=== PATIENT | male | born 1940 | race Caucasian/White ===

== ENCOUNTER 2016-12-07 09:17 | Inpatient (IN) | payer MEDICARE ==
[~2016-12-07] VITALS: Ht 182.9 cm; Wt 121.3 kg
[2016-12-07] MEDS ORDERED: AMLODIPINE BESYLATE 5 MG TABLET PO ONE (10:15)
[2016-12-07] MEDS ORDERED: ONDANSETRON PF 4 MG/2 ML VIAL. IV ONE (10:15)
--- NOTE | 2016-12-07 10:20 | EKG ---
[facility] [address] [place] [address] Test Date: 2016-12-07 Test Time: 09:38:16 Pat Name: EVELYN KONG Department: Room: Gender: M [employer]: : 1940 Requested By: ELIZABETH BOLTON Order Number: [id number] Reading MD: Measurements Intervals [place] Rate: 83 P: 24 MT: 136 QRS: -3 QRSD: 112 T: 51 QT: 366 QTc: 431 Interpretive Statements SINUS RHYTHM ATRIAL PREMATURE COMPLEX(ES) LEFTWARD AXIS QRS(T) CONTOUR ABNORMALITY CONSIDER ANTEROSEPTAL MYOCARDIAL DAMAGE CONSISTENT WITH INFERIOR INFARCT PROBABLY OLD RI6.01 Unconfirmed report No previous ECG available for comparison
[2016-12-07 10:27] LABS: BILIRUBIN,URINE NEGATIVE (NEG); GLUCOSE,URINE NEGATIVE (NEG); NITRITE,URINE NEGATIVE (NEG); PROTEIN,URINE NEGATIVE (NEG-TRACE)
--- NOTE | 2016-12-07 10:32 | RAD ---
Indication dizziness. Nausea. Hypertension. A single view of the chest was obtained and is compared to an examination 07/23/2012. There is mild diffuse interstitial prominence in both lungs relative to the previous exam. Findings are suggestive either of mild congestive heart failure or interstitial pneumonitis. A consolidated pneumonia is not seen. Somewhat tortuous thoracic aorta is noted similar to the previous exam. There is no pleural fluid or pneumothorax. IMPRESSION: Interstitial prominence suggesting an inflammatory process or mild congestive heart failure. No focal consolidative process is seen in either lung
[2016-12-07 10:44] LABS: BACTERIA,URINE FEW /HPF (0-FEW); WBC,URINE RARE /HPF (0-4)
[2016-12-07 10:57] LABS: BASO # 0.1 x10^3/uL (0.0-0.2); BASO % 1 % (0-3); EOS % 1 % (0-3); HEMATOCRIT 43.5 % (39.0-53.0); HEMOGLOBIN 14.5 g/dL (13.0-17.5); LYMPH # 0.7 x10^3/uL (1.0-4.8); LYMPH % 5 % (24-48); MEAN CORPUSCULAR HEMOGLOBIN 29 pg (25-35); MEAN CORPUSCULAR HGB CONC 33 g/dL (31-37); MEAN CORPUSCULAR VOLUME 87 fL (79-100); MONO % 6 % (0-9); NEUT % 88 % (31-73); PLATELET COUNT 253 x10^3/uL (140-400); RED BLOOD COUNT 5.02 x10^6/uL (4.30-5.70); RED CELL DISTRIBUTION WIDTH 16.2 % (11.5-14.5); WHITE BLOOD COUNT 12.1 x10^3/uL (4.0-11.0)
[2016-12-07 11:13] LABS: CREATININE 0.9 mg/dL (0.7-1.3); GFR 82.3; POTASSIUM 4.4 mmol/L (3.5-5.1)
[2016-12-07 11:17] LABS: ALBUMIN 3.8 g/dL (3.4-5.0); MAGNESIUM 2.1 mg/dL (1.8-2.4); TOTAL BILIRUBIN 0.5 mg/dL (0.2-1.0); TOTAL PROTEIN 7.5 g/dL (6.4-8.2)
--- NOTE | 2016-12-07 11:29 | RAD ---
CT of the head without contrast, 12/07/2016: History: Dizziness and nausea There is asymmetric effacement of the sylvian fissure on the right as well as overlying temporal lobe sulci. There is a suggestion of an underlying focus of increased density in the temporal lobe surrounded by lower density, possibly edema. This region is suboptimally delineated due to beam hardening artifacts from the skull base. There is slight associated effacement of the right lateral ventricle with a slight right to left shift of the midline structures. Patchy lucencies in the deep white matter bilaterally are compatible with chronic ischemic change. IMPRESSION: 1. Ill-defined density in the right temporal lobe suggesting a mass or subacute hemorrhage. MR scanning is suggested for further evaluation. 2. Bilateral deep white matter lucencies compatible with chronic ischemic change. PQRS Compliance Statement: One or more of the following individualized dose reduction techniques were utilized for this examination: 1. Automated exposure control 2. Adjustment of the mA and/or kV according to patient size 3. Use of iterative reconstruction technique
[2016-12-07] MEDS ORDERED: hydrALAZINE 20 MG/ML VIAL. IVP ONE (11:30)
--- NOTE | 2016-12-07 12:15 | PHYS DOC ---
Past Medical History Past Medical History: Asthma, GERD Additional Past Medical Histor: COLON CA Past Surgical History: Colectomy Additional Past Surgical Histo: VASECTOMY Alcohol Use: None Drug Use: None Adult General Chief Complaint Chief Complaint: DIZZY/LIGHT HEADED HPI HPI Patient is a 76 year old male who presents with dizziness. Patient reports since awaking this morning he has been feeling dizzy; when asked to described this morning he says not really vertigo, it is kind of like lightheadedness but he does not feel like he is going to pass out. He also reports feeling "out of it". He also reports chills, nausea, general weakness. He denies any pain anywhere. He also denies shortness of breath. No prior similar episodes. He has not taken anything for symptoms. Review of Systems Review of Systems Constitutional: Chills, general weakness Eyes: Denies change in visual acuity or eye pain HENT: Denies nasal congestion or sore throat Respiratory: Denies cough or shortness of breath Cardiovascular: Denies chest pain GI: Nausea. Denies abdominal pain, vomiting, bloody stools or diarrhea : Denies dysuria or hematuria Musculoskeletal: Denies back pain or joint pain Integument: Denies rash or skin lesions Neurologic: Dizzy, "out of it". Denies headache, focal weakness or sensory changes Current Medications Current Medications Current Medications Medications (Trade) Dose Ordered Sig/Pankaj Start Time Stop Time Status Last Admin Dose Admin Amlodipine Besylate (Norvasc) 5 mg 1X ONCE 12/07/16 10:15 12/07/16 10:16 DC 12/07/16 10:45 5 MG Hydralazine HCl (Apresoline) 10 mg 1X ONCE 12/07/16 11:30 12/07/16 11:31 DC 12/07/16 11:45 10 MG Ondansetron HCl (Zofran) 4 mg 1X ONCE 12/07/16 10:15 12/07/16 10:16 DC 12/07/16 10:15 4 MG Allergies Allergies Allergies Coded Allergies Type Severity Reaction Last Updated Verified No Known Drug Allergies 12/07/16 No Physical Exam Physical Exam Constitutional: Well developed, well nourished, no acute distress, non-toxic appearance HENT: Normocephalic, atraumatic, bilateral external ears normal Eyes: PERRL, EOMI, conjunctiva normal, no discharge Neck: Normal range of motion, no stridor Cardiovascular: Heart rate normal, regular rhythm, no murmur Lungs & Thorax: Bilateral breath sounds clear to auscultation Abdomen: Bowel sounds normal, soft, non-distended, no TTP Skin: Warm, dry, no erythema, no rash Extremities: No obvious deformity, no edema Neurologic: Alert and oriented X 3, GCS 15, CN II-XII grossly intact except for nystagmus, strength intact and symmetrical throughout, sensation to light touch intact throughout, no dystaxia noted Psychologic: Anxious Current Patient Data Vital Signs Vital Signs Date Time Temp Pulse Resp B/P Pulse Ox O2 Delivery O2 Flow Rate FiO2 12/07/16 12:00 88 20 208/104 96 Room Air 12/07/16 09:35 98.3 98.3 Lab Values Laboratory Tests Test 12/07/16 10:13 12/07/16 10:40 Urine Collection Type Void Urine Color Yellow Urine Clarity Clear Urine pH 7.0 Urine Specific [place] 1.015 Urine Protein Negativemg/dL (NEG-TRACE) Urine Glucose (UA) Negativemg/dL (NEG) Urine Ketones (Stick) Negativemg/dL (NEG) Urine Blood Negative (NEG) Urine Nitrite Negative (NEG) Urine Bilirubin Negative (NEG) Urine Urobilinogen Dipstick 1.0mg/dL (0.2 mg/dL) Urine Leukocyte Esterase Negative (NEG) Urine RBC 1-2/HPF (0-2) Urine WBC Rare/HPF (0-4) Urine Amorphous Sediment Present/HPF Urine Bacteria Few/HPF (0-FEW) Urine Mucus Mod/LPF White Blood Count 12.1x10^3/uL (4.0-11.0) H Red Blood Count 5.02x10^6/uL (4.30-5.70) Hemoglobin 14.5g/dL (13.0-17.5) Hematocrit 43.5% (39.0-53.0) Mean Corpuscular Volume 87fL (79-100) Mean Corpuscular Hemoglobin 29pg (25-35) Mean Corpuscular Hemoglobin Concent 33g/dL (31-37) Red Cell Distribution Width 16.2% (11.5-14.5) H Platelet Count 253x10^3/uL (140-400) Neutrophils (%) (Auto) 88% (31-73) H Lymphocytes (%) (Auto) 5% (24-48) L Monocytes (%) (Auto) 6% (0-9) Eosinophils (%) (Auto) 1% (0-3) Basophils (%) (Auto) 1% (0-3) Neutrophils # (Auto) 10.6x10^3uL (1.8-7.7) H Lymphocytes # (Auto) 0.7x10^3/uL (1.0-4.8) L Monocytes # (Auto) 0.7x10^3/uL (0.0-1.1) Eosinophils # (Auto) 0.1x10^3/uL (0.0-0.7) Basophils # (Auto) 0.1x10^3/uL (0.0-0.2) Segmented Neutrophils % 85% (35-66) H Band Neutrophils % 6% (0-9) Lymphocytes % 4% (24-48) L Monocytes % 3% (0-10) Basophils % 2% (0-3) Platelet Estimate Adequate (ADEQUATE) Anisocytosis Slight Ovalocytes Few Prothrombin Time 14.2SEC (11.7-14.0) H Prothrombin Time INR 1.2 (0.8-1.1) H PTT 34SEC (24-38) Sodium Level 140mmol/L (136-145) Potassium Level 4.4mmol/L (3.5-5.1) Chloride Level 102mmol/L (98-107) Carbon Dioxide Level 25mmol/L (21-32) Anion Gap 13 (6-14) Blood Urea Nitrogen 16mg/dL (8-26) Creatinine 0.9mg/dL (0.7-1.3) Estimated GFR (Cockcroft-Gault) 82.3 BUN/Creatinine Ratio 18 (6-20) Glucose Level 148mg/dL (70-99) H Calcium Level 9.0mg/dL (8.5-10.1) Magnesium Level 2.1mg/dL (1.8-2.4) Total Bilirubin 0.5mg/dL (0.2-1.0) Aspartate Amino Transferase (AST) 19U/L (15-37) Alanine Aminotransferase (ALT) 24U/L (16-63) Alkaline Phosphatase 107U/L (46-116) Troponin I Quantitative < 0.017ng/mL (0.000-0.055) Total Protein 7.5g/dL (6.4-8.2) Albumin 3.8g/dL (3.4-5.0) Albumin/Globulin Ratio 1.0 (1.0-1.7) Laboratory Tests 12/07/16 10:40 Laboratory Tests 12/07/16 10:40 EKG EKG EKG (my read): sinus rhythm, rate 83, single PAC noted, borderline LAD, nonspecific ST changes Radiology/Procedures Radiology/Procedures CXR: IMPRESSION: Interstitial prominence suggesting an inflammatory process or mild congestive heart failure. No focal consolidative process is seen in either lung CT head: IMPRESSION: 1. Ill-defined density in the right temporal lobe suggesting a mass or subacute hemorrhage. MR scanning is suggested for further evaluation. 2. Bilateral deep white matter lucencies compatible with chronic ischemic change. Course & Med Decision Making Course & Med Decision Making Pertinent Labs and Imaging studies reviewed. (See chart for details) Patient is 76-year-old male who presents with vague dizziness, nausea, weakness. Will obtain CT head, EKG, chest x-ray, labs to evaluate. Patient noted to be hypertensive, blood pressure meds ordered. Given nausea medication for relief of nausea. Labs notable for mild leukocytosis. Imaging results as above. CT head in particular is concerning. Discussed results with patient. Discussed Dr. Miles, will admit under his care for further evaluation and treatment. MRI brain and neurology consult entered. Dragon Disclaimer Dragon Disclaimer This electronic medical record was generated, in whole or in part, using a voice recognition dictation system. Departure Departure Impression: Primary Impression: Dizziness Additional Impression: Abnormal brain CT Disposition: ADMITTED INPATIENT Admitting Physician: Zay Miles Condition: STABLE Referrals: ZAY MILES MD (PCP) Problem Qualifiers ELIZABETH BOLTON MD Dec 07, 2016 12:15
[2016-12-07 12:26] LABS: INR 1.2 (0.8-1.1); PROTHROMBIN TIME PATIENT 14.2 SEC (11.7-14.0)
[2016-12-07] MEDS ORDERED: ACETAMINOPHEN 325 MG TABLET. PO PRN (12:45)
[2016-12-07] MEDS ORDERED: MORPHINE SULFATE 2 MG/ML DISP.SYRIN. IV PRN (12:45)
--- NOTE | 2016-12-07 12:59 | ACF ---
Admission Forms Criteria DIZZINESS Clinical Indications for Admission to Inpatient Care (Place 'X' for any and all applicable criteria): Admission is indicated for ANY ONE of the following(1)(2)(3)(4): [X]I. Inpatient admission required rather than observation care (Also use Dizziness: Observation Care as appropriate) because of ANY ONE of the following: [ ]a) Hemodynamic instability that is severe or persistent [ ]b) Signs or symptoms that are severe or persistent (eg, vomit, orthostasis, inability to ambulate) [ ]c) Cardiac arrhythmias of immediate concern [X]d) Severe (new) neurologic findings requiring inpatient care as indicated by ANY ONE of the following(6)(7): [ ]1) Cerebral bleeding, ischemia, or vasospasm(8)(9) [ ]2) Increased intracranial pressure or hydrocephalus(10)(11)(12) [ ]3) Papilledema [ ]4) Cerebral edema [X]5) Mass effect on CT scan [ ]e) Continuous IV infusion of anticoagulation, platelet inhibitor, vasoactive, or antiarrhythmic medication [ ]f) Cerebral bleeding, hydrocephalus, or vasospasm monitoring(14) [ ]g) Increased intracranial pressure or cerebral edema monitoring [ ]h) Vomiting that is severe or persistent [ ]i) Other condition, treatment or monitoring requiring inpatient admission [ ]II. A suspected etiology that requires admission for treatment [ ]III. Acute bacterial labyrinthitis [ ]IV. Cerebellar, brainstem, or cerebral ischemia or hemorrhage (5) Extended stay beyond goal length of stay may be needed for evaluating and treating a specific cause of dizziness, including(32) [ ]a) Head injury (Also use Traumatic Brain Injury, Nonsurgical Treatment guideline) [ ]b) New-onset vertebrobasilar vascular insufficiency [ ]c) Acute Meniere disease with intractable symptoms [ ]d) Cardiac arrhythmias or conduction defects [ ]e) Acute neurologic event causing dizziness [ ]f) Myocardial ischemia [ ]g) Acute bacterial labyrinthitis. [ ]h) Severe acute vestibular neuronitis The original [facility] [employer] content created by [employer] has been revised. The portions of the content which have been revised are identified through the use of italic text or in bold, and [facility] [employer] has neither reviewed nor approved the modified material. All other unmodified content is copyright [facility]. Please see references footnoted in the original [facility] edition 2016 Admission Criteria Met?: Yes ANGELES FULTON Dec 07, 2016 12:59
[2016-12-07] MEDS: ONDANSETRON PF 4 MG/2 ML VIAL. IV PRN ×2 (13:16→21:34)
[2016-12-07] MEDS: hydrALAZINE 20 MG/ML VIAL. IVP PRN ×2 (13:17→17:42)
[2016-12-07 13:22] LABS: % BASOS 2 % (0-3); PLT ESTIMATE ADEQUATE (ADEQUATE)
[2016-12-07 13:23] LABS: ANISOCYTOSIS SLIGHT; OVALOCYTES FEW
[2016-12-07] MEDS ORDERED: GADOBUTROL 7.5 MMOL/7.5 ML VIAL IV ONE (14:00)
[2016-12-07] MEDS ORDERED: GADOBUTROL 10 MMOL/10 ML VIAL IV ONE (14:00)
--- NOTE | 2016-12-07 16:41 | PDOC2 ---
NEUROLOGY CONSULT Date of Admission Date of Admission DATE: 12/07/16 TIME: 16:31 Reason for Consult Reason for Consult: Abnormal head CT Referring Physician Referring Physician: Dr. An Source Source: Chart review, Patient History of Present Illness History of Present Illness The patient is a 76-year-old right-handed male who felt dizzy this morning came to the emergency department. He feels "out of it," rather than a true type of vertigo. He has no history of stroke, seizure, or head injury. Past Medical History GI: GERD (progress) Heme/Onc: Cancer (colon 1994) Past Surgical History Past Surgical History: Colectomy, Other (vascectomy) Family History Family History: Cancer Social History Social History , lives alone, has 9 cats, chews tobacco, does not smoke it, does not use alcohol. Current Medications Current Medications Current Medications Amlodipine Besylate (Norvasc) 5 mg 1X ONCE PO Last administered on 12/07/16 10:45; Start 12/07/16 at 10:15; Stop 12/07/16 at 10:16; Status DC Ondansetron HCl (Zofran) 4 mg 1X ONCE IV Last administered on 12/07/16 10:15 ; Start 12/07/16 at 10:15; Stop 12/07/16 at 10:16; Status DC Hydralazine HCl (Apresoline) 10 mg 1X ONCE IVP Last administered on 12/07/16 11:45; Start 12/07/16 at 11:30; Stop 12/07/16 at 11:31; Status DC Ondansetron HCl (Zofran) 4 mg PRN Q8HRS PRN IV NAUSEA/VOMITING Last administered on 12/07/16 13:16; Start 12/07/16 at 12:45; Stop 12/08/16 at 12:44 Morphine Sulfate 2 mg PRN Q2HR PRN IV PAIN; Start 12/07/16 at 12:45; Stop 12/08 at 12:44 Acetaminophen (Tylenol) 650 mg PRN Q4HRS PRN PO FEVER Last administered on 12/07 13:16; Start 12/07/16 at 12:45; Stop 12/08/16 at 12:44 Hydralazine HCl (Apresoline) 10 mg PRN Q1HR PRN IVP SBP >160 Last administered on 12/07/16 13:17; Start 12/07/16 at 12:45 Gadobutrol (Gadavist) 10 mmol 1X ONCE IV Last administered on 12/07/16 14:08 ; Start 12/07/16 at 14:00; Stop 12/07/16 at 14:01; Status DC Gadobutrol (Gadavist) 4 mmol 1X ONCE IV Last administered on 12/07/16 14:08; Start 12/07/16 at 14:00; Stop 12/07/16 at 14:01; Status DC Allergies Allergies: Coded Allergies: No Known Drug Allergies (Unverified , 12/07/16) ROS Review of System Patient denies fevers, chills, weight loss, dyspnea, angina, abdominal pain, change in bowels, or dysuria. 14 point review of systems is negative. Physical Exam Physical Examination PHYSICAL EXAMINATION: Vital signs: see above. General appearance is normal and in no acute distress. HEENT: Normocephalic and nontraumatic. Eyes, nose, ears, and throat are unremarkable. Neck is supple. No lymphadenopathy. No bruits are heard over the carotid artery. No crepitus. NEUROLOGICAL EXAMINATION: Mental Status Examination: Alert. Oriented to time, place, and person. Answers questions and follows commends. Pupils are equal round and reactive to light and accommodation. Funduscopic exam: No papilledema. Extraocular movements are intact. Visual field exam shows no defect on the direct confrontation. No motor or sensory deficits on the facial exam. Uvula in the midline and the soft palate elevated symmetrically. No deviation of the tongue to any direction. Gross hearing is normal. Shoulder shrug normal. Muscle tone is normal. Muscle strength is 5. Deep tendon reflexes are 2+ all around. Plantar reflex is with flexion response bilaterally. [id number]-[id number]-[id number] test performance is accurate. Tandem walk test is accurate. Alternative movements are accurate. Romberg test is negative. Gait is normal. Sensory exam shows no deficits. No cerebellar signs are elicited. Vitals VITALS Vital Signs Date Time Temp Pulse Resp B/P Pulse Ox O2 Delivery O2 Flow Rate FiO2 12/07/16 15:00 99 20 168/82 97 Room Air 12/07/16 09:35 98.3 98.3 Labs Labs Laboratory Tests Test 12/07/16 10:13 12/07/16 10:40 Urine Collection Type Void Urine Color Yellow Urine Clarity Clear Urine pH 7.0 Urine Specific [place] 1.015 Urine Protein Negativemg/dL (NEG-TRACE) Urine Glucose (UA) Negativemg/dL (NEG) Urine Ketones (Stick) Negativemg/dL (NEG) Urine Blood Negative (NEG) Urine Nitrite Negative (NEG) Urine Bilirubin Negative (NEG) Urine Urobilinogen Dipstick 1.0mg/dL (0.2 mg/dL) Urine Leukocyte Esterase Negative (NEG) Urine RBC 1-2/HPF (0-2) Urine WBC Rare/HPF (0-4) Urine Amorphous Sediment Present/HPF Urine Bacteria Few/HPF (0-FEW) Urine Mucus Mod/LPF White Blood Count 12.1x10^3/uL (4.0-11.0) Red Blood Count 5.02x10^6/uL (4.30-5.70) Hemoglobin 14.5g/dL (13.0-17.5) Hematocrit 43.5% (39.0-53.0) Mean Corpuscular Volume 87fL (79-100) Mean Corpuscular Hemoglobin 29pg (25-35) Mean Corpuscular Hemoglobin Concent 33g/dL (31-37) Red Cell Distribution Width 16.2% (11.5-14.5) Platelet Count 253x10^3/uL (140-400) Neutrophils (%) (Auto) 88% (31-73) Lymphocytes (%) (Auto) 5% (24-48) Monocytes (%) (Auto) 6% (0-9) Eosinophils (%) (Auto) 1% (0-3) Basophils (%) (Auto) 1% (0-3) Neutrophils # (Auto) 10.6x10^3uL (1.8-7.7) Lymphocytes # (Auto) 0.7x10^3/uL (1.0-4.8) Monocytes # (Auto) 0.7x10^3/uL (0.0-1.1) Eosinophils # (Auto) 0.1x10^3/uL (0.0-0.7) Basophils # (Auto) 0.1x10^3/uL (0.0-0.2) Segmented Neutrophils % 85% (35-66) Band Neutrophils % 6% (0-9) Lymphocytes % 4% (24-48) Monocytes % 3% (0-10) Basophils % 2% (0-3) Platelet Estimate Adequate (ADEQUATE) Anisocytosis Slight Ovalocytes Few Prothrombin Time 14.2SEC (11.7-14.0) Prothromb Time International Ratio 1.2 (0.8-1.1) Activated Partial Thromboplast Time 34SEC (24-38) Sodium Level 140mmol/L (136-145) Potassium Level 4.4mmol/L (3.5-5.1) Chloride Level 102mmol/L (98-107) Carbon Dioxide Level 25mmol/L (21-32) Anion Gap 13 (6-14) Blood Urea Nitrogen 16mg/dL (8-26) Creatinine 0.9mg/dL (0.7-1.3) Estimated GFR (Cockcroft-Gault) 82.3 BUN/Creatinine Ratio 18 (6-20) Glucose Level 148mg/dL (70-99) Calcium Level 9.0mg/dL (8.5-10.1) Magnesium Level 2.1mg/dL (1.8-2.4) Total Bilirubin 0.5mg/dL (0.2-1.0) Aspartate Amino Transf (AST/SGOT) 19U/L (15-37) Alanine Aminotransferase (ALT/SGPT) 24U/L (16-63) Alkaline Phosphatase 107U/L (46-116) Troponin I Quantitative < 0.017ng/mL (0.000-0.055) Total Protein 7.5g/dL (6.4-8.2) Albumin 3.8g/dL (3.4-5.0) Albumin/Globulin Ratio 1.0 (1.0-1.7) Laboratory Tests Test 12/07/16 10:13 12/07/16 10:40 Urine Collection Type Void Urine Color Yellow Urine Clarity Clear Urine pH 7.0 Urine Specific [place] 1.015 Urine Protein Negativemg/dL (NEG-TRACE) Urine Glucose (UA) Negativemg/dL (NEG) Urine Ketones (Stick) Negativemg/dL (NEG) Urine Blood Negative (NEG) Urine Nitrite Negative (NEG) Urine Bilirubin Negative (NEG) Urine Urobilinogen Dipstick 1.0mg/dL (0.2 mg/dL) Urine Leukocyte Esterase Negative (NEG) Urine RBC 1-2/HPF (0-2) Urine WBC Rare/HPF (0-4) Urine Amorphous Sediment Present/HPF Urine Bacteria Few/HPF (0-FEW) Urine Mucus Mod/LPF White Blood Count 12.1x10^3/uL (4.0-11.0) Red Blood Count 5.02x10^6/uL (4.30-5.70) Hemoglobin 14.5g/dL (13.0-17.5) Hematocrit 43.5% (39.0-53.0) Mean Corpuscular Volume 87fL (79-100) Mean Corpuscular Hemoglobin 29pg (25-35) Mean Corpuscular Hemoglobin Concent 33g/dL (31-37) Red Cell Distribution Width 16.2% (11.5-14.5) Platelet Count 253x10^3/uL (140-400) Neutrophils (%) (Auto) 88% (31-73) Lymphocytes (%) (Auto) 5% (24-48) Monocytes (%) (Auto) 6% (0-9) Eosinophils (%) (Auto) 1% (0-3) Basophils (%) (Auto) 1% (0-3) Neutrophils # (Auto) 10.6x10^3uL (1.8-7.7) Lymphocytes # (Auto) 0.7x10^3/uL (1.0-4.8) Monocytes # (Auto) 0.7x10^3/uL (0.0-1.1) Eosinophils # (Auto) 0.1x10^3/uL (0.0-0.7) Basophils # (Auto) 0.1x10^3/uL (0.0-0.2) Segmented Neutrophils % 85% (35-66) Band Neutrophils % 6% (0-9) Lymphocytes % 4% (24-48) Monocytes % 3% (0-10) Basophils % 2% (0-3) Platelet Estimate Adequate (ADEQUATE) Anisocytosis Slight Ovalocytes Few Prothrombin Time 14.2SEC (11.7-14.0) Prothromb Time International Ratio 1.2 (0.8-1.1) Activated Partial Thromboplast Time 34SEC (24-38) Sodium Level 140mmol/L (136-145) Potassium Level 4.4mmol/L (3.5-5.1) Chloride Level 102mmol/L (98-107) Carbon Dioxide Level 25mmol/L (21-32) Anion Gap 13 (6-14) Blood Urea Nitrogen 16mg/dL (8-26) Creatinine 0.9mg/dL (0.7-1.3) Estimated GFR (Cockcroft-Gault) 82.3 BUN/Creatinine Ratio 18 (6-20) Glucose Level 148mg/dL (70-99) Calcium Level 9.0mg/dL (8.5-10.1) Magnesium Level 2.1mg/dL (1.8-2.4) Total Bilirubin 0.5mg/dL (0.2-1.0) Aspartate Amino Transf (AST/SGOT) 19U/L (15-37) Alanine Aminotransferase (ALT/SGPT) 24U/L (16-63) Alkaline Phosphatase 107U/L (46-116) Troponin I Quantitative < 0.017ng/mL (0.000-0.055) Total Protein 7.5g/dL (6.4-8.2) Albumin 3.8g/dL (3.4-5.0) Albumin/Globulin Ratio 1.0 (1.0-1.7) Images Images I reviewed the CT of the head in the MRI of the brain Assessment/Plan Assessment/Plan Impression: Right temporal mass, does not appear to be a stroke, 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 Recommendations: IV Decadron Prophylactic anticonvulsants are not indicated per medical literature Neurosurgical consult CT [id number] I discussed findings with the patient in detail. Thank you for letting me help with the patient's care. GLADYS ROWELL MD Dec 07, 2016 16:41
--- NOTE | 2016-12-07 17:03 | RAD ---
PROCEDURE MRI of the brain without and with contrast 12/07/2016 HISTORY Severe dizziness with unsteady gait for 1 day. Hypertension. TECHNIQUE Unenhanced T1 weighted sagittal and axial and gradient echo, FLAIR, and diffusion weighted axial images of the brain were obtained. After the intravenous administration of 12 cc of Gadavist, enhanced T1 weighted sagittal axial and coronal images of the brain were obtained. FINDINGS Comparison is made to a CT scan of the head performed earlier today. There is generalized parenchymal atrophy. Patchy, confluent and multiple focal areas of abnormally increased signal intensity are seen within the periventricular and subcortical white matter of both cerebral hemispheres along with the jered on the FLAIR and T2 weighted images consistent with areas of small vessel ischemic disease. No extra-axial fluid collection is seen. Increased signal intensity is seen on the FLAIR and T2 weighted images involving the anterior right temporal lobe. There is associated mass effect. This corresponds to the abnormality seen on the patient's CT scan of the head. No definite underlying restricted diffusion is seen in this area. Faint patchy enhancement is seen centrally. These MRI findings are nonspecific and could be seen in the setting of a subacute infarct, infectious process (encephalitis) or due to a neoplasm. Clinical correlation and follow-up MRI imaging is recommended. Mild mucosal thickening is seen scattered throughout the paranasal sinuses. Normal flow voids are seen within the major vascular structures surrounding the brain parenchyma. IMPRESSION Area of abnormal signal intensity with associated mass effect is seen involving the anterior right temporal lobe which corresponds to the abnormality seen on the patient's CT scan. Its MRI appearance is nonspecific. It could represent an area of subacute infarction, an infectious process (encephalitis) or neoplasm. Clinical correlation is recommended. Follow-up MRI imaging is recommended. Electronically signed by: Cosme Du MD (Dec 07, 2016 17:01:57)
[2016-12-07] MEDS ORDERED: BREO ELLIPTA 21 EACH IH (17:08)
[2016-12-07] MEDS ORDERED: CITA10TA4 PO (17:10)
[2016-12-07 17:38] VITALS: BP 181/98
[2016-12-07 17:39] VITALS: BP 181/98
[2016-12-07] MEDS: DEXAMETHASONE SOD PHOS 4 MG/ML VIAL IV SCH ×2 (17:41→23:40)
[2016-12-07 19:25] VITALS: BP 134/72
[2016-12-07 23:35] VITALS: BP 130/70
[2016-12-08 03:25] VITALS: BP 139/67
[2016-12-08 04:42] LABS: BASO % 0 % (0-3); EOS % 0 % (0-3); HEMATOCRIT 41.4 % (39.0-53.0); HEMOGLOBIN 13.3 g/dL (13.0-17.5); LYMPH # 0.4 x10^3/uL (1.0-4.8); LYMPH % 4 % (24-48); MEAN CORPUSCULAR HEMOGLOBIN 29 pg (25-35); MEAN CORPUSCULAR HGB CONC 32 g/dL (31-37); MEAN CORPUSCULAR VOLUME 88 fL (79-100); MONO % 2 % (0-9); NEUT % 94 % (31-73); PLATELET COUNT 233 x10^3/uL (140-400); RED BLOOD COUNT 4.68 x10^6/uL (4.30-5.70)
[2016-12-08 04:52] LABS: CALCIUM 9.1 mg/dL (8.5-10.1); CREATININE 0.9 mg/dL (0.7-1.3); GFR 82.3; POTASSIUM 4.1 mmol/L (3.5-5.1)
[2016-12-08] MEDS: DEXAMETHASONE SOD PHOS 4 MG/ML VIAL IV SCH ×3 (06:33→17:20)
[2016-12-08 07:00] VITALS: BP 127/71
--- NOTE | 2016-12-08 08:14 | PDOC ---
GENERAL General: vss and afebrile. seen and examined. son in room. history per patient of sudden onset nonspecific dizziness and weakness yesterday am with no symptoms preceding same. son feels dad was not quite right last Wednesday with just disinterest in things when he saw him. [facility] underway for left temporal lobe process. neurology help appreciated. See dictated H&P. Problems: VITAL SIGNS Vital Signs: Vital Signs Date Time Temp Pulse Resp B/P Pulse Ox O2 Delivery O2 Flow Rate FiO2 12/08/16 07:36 Room Air 12/08/16 07:00 98.0 93 18 127/71 94 98.0 I & O I & O Intake and Output 12/08/16 07:00 Intake Total 600 ml Balance 600 ml Intake Oral 600 ml # Voids 3 ALLERGIES Allergies: Allergies Coded Allergies Type Severity Reaction Last Updated Verified No Known Drug Allergies 12/07/16 No MEDS Medications: Current Medications Medications (Trade) Dose Ordered Sig/Pankaj Start Time Stop Time Status Last Admin Dose Admin Acetaminophen (Tylenol) 650 mg PRN Q4HRS PRN 12/07/16 12:45 12/08/16 12:44 12/07/16 13:16 650 MG Amlodipine Besylate (Norvasc) 5 mg 1X ONCE 12/07/16 10:15 12/07/16 10:16 DC 12/07/16 10:45 5 MG Dexamethasone Sodium Phosphate (Decadron) 4 mg Q6HRS 12/07/16 17:00 12/08/16 06:33 4 MG Gadobutrol (Gadavist) 4 mmol 1X ONCE 12/07/16 14:00 12/07/16 14:01 DC 12/07/16 14:08 4 MMOL Hydralazine HCl (Apresoline) 10 mg PRN Q1HR PRN 12/07/16 12:45 12/07/16 17:42 10 MG Morphine Sulfate 2 mg PRN Q2HR PRN 12/07/16 12:45 12/08/16 12:44 12/07/16 23:40 2 MG Ondansetron HCl (Zofran) 4 mg PRN Q8HRS PRN 12/07/16 12:45 12/08/16 12:44 12/07/16 21:34 4 MG LAB Lab: Laboratory Tests Test 12/07/16 10:13 12/07/16 10:40 12/08/16 04:15 Urine Collection Type Void Urine Color Yellow Urine Clarity Clear Urine pH 7.0 Urine Specific [place] 1.015 Urine Protein Negativemg/dL (NEG-TRACE) Urine Glucose (UA) Negativemg/dL (NEG) Urine Ketones (Stick) Negativemg/dL (NEG) Urine Blood Negative (NEG) Urine Nitrite Negative (NEG) Urine Bilirubin Negative (NEG) Urine Urobilinogen Dipstick 1.0mg/dL (0.2 mg/dL) Urine Leukocyte Esterase Negative (NEG) Urine RBC 1-2/HPF (0-2) Urine WBC Rare/HPF (0-4) Urine Amorphous Sediment Present/HPF Urine Bacteria Few/HPF (0-FEW) Urine Mucus Mod/LPF White Blood Count 12.1x10^3/uL (4.0-11.0) 12.0x10^3/uL (4.0-11.0) Red Blood Count 5.02x10^6/uL (4.30-5.70) 4.68x10^6/uL (4.30-5.70) Hemoglobin 14.5g/dL (13.0-17.5) 13.3g/dL (13.0-17.5) Hematocrit 43.5% (39.0-53.0) 41.4% (39.0-53.0) Mean Corpuscular Volume 87fL (79-100) 88fL (79-100) Mean Corpuscular Hemoglobin 29pg (25-35) 29pg (25-35) Mean Corpuscular Hemoglobin Concent 33g/dL (31-37) 32g/dL (31-37) Red Cell Distribution Width 16.2% (11.5-14.5) 16.0% (11.5-14.5) Platelet Count 253x10^3/uL (140-400) 233x10^3/uL (140-400) Neutrophils (%) (Auto) 88% (31-73) 94% (31-73) Lymphocytes (%) (Auto) 5% (24-48) 4% (24-48) Monocytes (%) (Auto) 6% (0-9) 2% (0-9) Eosinophils (%) (Auto) 1% (0-3) 0% (0-3) Basophils (%) (Auto) 1% (0-3) 0% (0-3) Neutrophils # (Auto) 10.6x10^3uL (1.8-7.7) 11.3x10^3uL (1.8-7.7) Lymphocytes # (Auto) 0.7x10^3/uL (1.0-4.8) 0.4x10^3/uL (1.0-4.8) Monocytes # (Auto) 0.7x10^3/uL (0.0-1.1) 0.2x10^3/uL (0.0-1.1) Eosinophils # (Auto) 0.1x10^3/uL (0.0-0.7) 0.0x10^3/uL (0.0-0.7) Basophils # (Auto) 0.1x10^3/uL (0.0-0.2) 0.0x10^3/uL (0.0-0.2) Segmented Neutrophils % 85% (35-66) Band Neutrophils % 6% (0-9) Lymphocytes % 4% (24-48) Monocytes % 3% (0-10) Basophils % 2% (0-3) Platelet Estimate Adequate (ADEQUATE) Anisocytosis Slight Ovalocytes Few Prothrombin Time 14.2SEC (11.7-14.0) Prothromb Time International Ratio 1.2 (0.8-1.1) Activated Partial Thromboplast Time 34SEC (24-38) Sodium Level 140mmol/L (136-145) 131mmol/L (136-145) Potassium Level 4.4mmol/L (3.5-5.1) 4.1mmol/L (3.5-5.1) Chloride Level 102mmol/L (98-107) 97mmol/L (98-107) Carbon Dioxide Level 25mmol/L (21-32) 24mmol/L (21-32) Anion Gap 13 (6-14) 10 (6-14) Blood Urea Nitrogen 16mg/dL (8-26) 15mg/dL (8-26) Creatinine 0.9mg/dL (0.7-1.3) 0.9mg/dL (0.7-1.3) Estimated GFR (Cockcroft-Gault) 82.3 82.3 BUN/Creatinine Ratio 18 (6-20) Glucose Level 148mg/dL (70-99) 126mg/dL (70-99) Calcium Level 9.0mg/dL (8.5-10.1) 9.1mg/dL (8.5-10.1) Magnesium Level 2.1mg/dL (1.8-2.4) Total Bilirubin 0.5mg/dL (0.2-1.0) Aspartate Amino Transf (AST/SGOT) 19U/L (15-37) Alanine Aminotransferase (ALT/SGPT) 24U/L (16-63) Alkaline Phosphatase 107U/L (46-116) Troponin I Quantitative < 0.017ng/mL (0.000-0.055) Total Protein 7.5g/dL (6.4-8.2) Albumin 3.8g/dL (3.4-5.0) Albumin/Globulin Ratio 1.0 (1.0-1.7) ZAY MILES MD Dec 08, 2016 08:14
[2016-12-08] MEDS: CITALOPRAM 10 MG TABLET. PO SCH (08:36)
[2016-12-08] MEDS ORDERED: NON FORMULARY ITEM (Fluticasone/Vilanterol (Breo Ellipta 200-25 Mcg INH) 1 PUFF) IH SCH (09:00)
--- NOTE | 2016-12-08 09:45 | PDOC ---
SUBJECTIVE Subjective Pt seen and examined. 76M with distant history of colonCA woke up yesterday with dizziness/ lightheadedness but without vertigo. Denies headache or pain. Denies focal weakness, paresthesias, visual disturbance, or other changes. Was excessively hypertensive on admit. Now normotensive. Reports symptoms improved to near resolved. Imaging revealed nonspecific T2 hyperintensity right temporal pole. On exam, he is neurologically intact. Concern for possible neoplastic process but could represent subacute stroke or potential inflammatory process. Pt bright and alert and does not appear toxic. CT chest/abd/pelvis neg. No seizure- like activity. Had long discussion with patient and family regarding potential etiologies of lesion with discussion of potential treatments and diagnostic modalities with explanation of potential risks, benefits, and expectations. As he remains neurologically intact and without symptoms that would be directly attributable to this lesion, a short term follow-up with repeat MR imaging in a few weeks is recommended at this time. If he otherwise continues to be stable, recommend repeat MRI brain with and without contrast in a few weeks with outpatient follow -up [phone]. Discussed with patient and family in detail. All questions answered. All in agreement. OBJECTIVE Vital Signs Vital Signs Date Time Temp Pulse Resp B/P Pulse Ox O2 Delivery O2 Flow Rate FiO2 12/08/16 07:36 Room Air 12/08/16 07:00 98.0 93 18 127/71 94 Room Air 98.0 12/08/16 03:25 99.1 97 20 139/67 92 Room Air 99.1 12/08/16 00:10 18 96 Room Air 12/07/16 23:40 20 96 Room Air 12/07/16 23:35 98.6 103 20 130/70 92 Room Air 98.6 12/07/16 20:00 Room Air 12/07/16 19:25 97.7 108 20 134/72 93 Room Air 97.7 12/07/16 17:47 Room Air 12/07/16 17:42 114 181/98 12/07/16 17:39 97.7 114 22 181/98 95 Room Air 97.7 12/07/16 17:38 97.7 114 22 181/98 Room Air 97.7 12/07/16 16:30 106 20 170/80 96 Room Air 12/07/16 16:00 106 20 173/88 97 Room Air 12/07/16 15:30 104 20 184/91 97 Room Air 12/07/16 15:00 99 20 168/82 97 Room Air 12/07/16 14:30 100 20 167/87 96 Room Air 12/07/16 14:00 98 20 162/74 97 Room Air 12/07/16 13:27 94 20 192/93 95 Room Air 12/07/16 13:17 98 192/93 12/07/16 13:00 102 20 182/88 97 Room Air 12/07/16 12:30 98 20 219/98 96 Room Air 12/07/16 12:00 88 20 208/104 96 Room Air 12/07/16 11:45 79 223/102 12/07/16 11:34 82 20 212/93 99 Room Air 12/07/16 11:05 80 20 205/87 99 Room Air 12/07/16 10:45 90 205/87 12/07/16 10:35 94 20 215/123 98 Room Air 12/07/16 10:05 94 18 206/104 98 Room Air I & O Intake and Output 12/08/16 07:00 Intake Total 600 ml Balance 600 ml Intake Oral 600 ml # Voids 3 COMMENT Lab Laboratory Tests Test 12/07/16 10:13 12/07/16 10:40 12/08/16 04:15 Urine Collection Type Void Urine Color Yellow Urine Clarity Clear Urine pH 7.0 Urine Specific [place] 1.015 Urine Protein Negativemg/dL (NEG-TRACE) Urine Glucose (UA) Negativemg/dL (NEG) Urine Ketones (Stick) Negativemg/dL (NEG) Urine Blood Negative (NEG) Urine Nitrite Negative (NEG) Urine Bilirubin Negative (NEG) Urine Urobilinogen Dipstick 1.0mg/dL (0.2 mg/dL) Urine Leukocyte Esterase Negative (NEG) Urine RBC 1-2/HPF (0-2) Urine WBC Rare/HPF (0-4) Urine Amorphous Sediment Present/HPF Urine Bacteria Few/HPF (0-FEW) Urine Mucus Mod/LPF White Blood Count 12.1x10^3/uL (4.0-11.0) 12.0x10^3/uL (4.0-11.0) Red Blood Count 5.02x10^6/uL (4.30-5.70) 4.68x10^6/uL (4.30-5.70) Hemoglobin 14.5g/dL (13.0-17.5) 13.3g/dL (13.0-17.5) Hematocrit 43.5% (39.0-53.0) 41.4% (39.0-53.0) Mean Corpuscular Volume 87fL (79-100) 88fL (79-100) Mean Corpuscular Hemoglobin 29pg (25-35) 29pg (25-35) Mean Corpuscular Hemoglobin Concent 33g/dL (31-37) 32g/dL (31-37) Red Cell Distribution Width 16.2% (11.5-14.5) 16.0% (11.5-14.5) Platelet Count 253x10^3/uL (140-400) 233x10^3/uL (140-400) Neutrophils (%) (Auto) 88% (31-73) 94% (31-73) Lymphocytes (%) (Auto) 5% (24-48) 4% (24-48) Monocytes (%) (Auto) 6% (0-9) 2% (0-9) Eosinophils (%) (Auto) 1% (0-3) 0% (0-3) Basophils (%) (Auto) 1% (0-3) 0% (0-3) Neutrophils # (Auto) 10.6x10^3uL (1.8-7.7) 11.3x10^3uL (1.8-7.7) Lymphocytes # (Auto) 0.7x10^3/uL (1.0-4.8) 0.4x10^3/uL (1.0-4.8) Monocytes # (Auto) 0.7x10^3/uL (0.0-1.1) 0.2x10^3/uL (0.0-1.1) Eosinophils # (Auto) 0.1x10^3/uL (0.0-0.7) 0.0x10^3/uL (0.0-0.7) Basophils # (Auto) 0.1x10^3/uL (0.0-0.2) 0.0x10^3/uL (0.0-0.2) Segmented Neutrophils % 85% (35-66) Band Neutrophils % 6% (0-9) Lymphocytes % 4% (24-48) Monocytes % 3% (0-10) Basophils % 2% (0-3) Platelet Estimate Adequate (ADEQUATE) Anisocytosis Slight Ovalocytes Few Prothrombin Time 14.2SEC (11.7-14.0) Prothromb Time International Ratio 1.2 (0.8-1.1) Activated Partial Thromboplast Time 34SEC (24-38) Sodium Level 140mmol/L (136-145) 131mmol/L (136-145) Potassium Level 4.4mmol/L (3.5-5.1) 4.1mmol/L (3.5-5.1) Chloride Level 102mmol/L (98-107) 97mmol/L (98-107) Carbon Dioxide Level 25mmol/L (21-32) 24mmol/L (21-32) Anion Gap 13 (6-14) 10 (6-14) Blood Urea Nitrogen 16mg/dL (8-26) 15mg/dL (8-26) Creatinine 0.9mg/dL (0.7-1.3) 0.9mg/dL (0.7-1.3) Estimated GFR (Cockcroft-Gault) 82.3 82.3 BUN/Creatinine Ratio 18 (6-20) Glucose Level 148mg/dL (70-99) 126mg/dL (70-99) Calcium Level 9.0mg/dL (8.5-10.1) 9.1mg/dL (8.5-10.1) Magnesium Level 2.1mg/dL (1.8-2.4) Total Bilirubin 0.5mg/dL (0.2-1.0) Aspartate Amino Transf (AST/SGOT) 19U/L (15-37) Alanine Aminotransferase (ALT/SGPT) 24U/L (16-63) Alkaline Phosphatase 107U/L (46-116) Troponin I Quantitative < 0.017ng/mL (0.000-0.055) Total Protein 7.5g/dL (6.4-8.2) Albumin 3.8g/dL (3.4-5.0) Albumin/Globulin Ratio 1.0 (1.0-1.7) IRENE GONCALVES MD Dec 08, 2016 09:45
[2016-12-08] MEDS ORDERED: IOHEXOL 300 MG/ML 75 ML VIAL IV ONE (10:15)
[2016-12-08] MEDS ORDERED: IOHEXOL 240 MG/ML 50ML VIAL. PO ONE (10:15)
[2016-12-08 11:00] VITALS: BP 136/71
--- NOTE | 2016-12-08 11:27 | PDOC ---
PROGRESS NOTES Assessment Problems Medical Problems: (1) Abnormal brain CT Status: Acute (2) Dizziness Status: Acute Right temporal lobe lesion. Son thinks he has not been acting right for the past week Plan Await workup Continue Decadron Neurosurgery has seen Discussed with patient son. Subjective No complaints Objective Vital Signs Date Time Temp Pulse Resp B/P Pulse Ox O2 Delivery O2 Flow Rate FiO2 12/08/16 07:36 Room Air 12/08/16 07:00 98.0 93 18 127/71 94 98.0 Intake and Output 12/08/16 07:00 Intake Total 600 ml Balance 600 ml Intake Oral 600 ml # Voids 3 PHYSICAL EXAM Alert. Oriented to time, place and person. PERRL. EOMI. CN: no focal findings. Muscle tone: normal. Muscle strength: 5/5 DTR: 2+ Plantar reflex: flexor Gait: not examined in bed. Sensory exam: no abnormal findings. No cerebellar signs elicited. Review of Relevant I have reviewed the following items abran (where applicable) has been applied. Labs Laboratory Tests Test 12/07/16 10:13 12/07/16 10:40 12/08/16 04:15 Urine Collection Type Void Urine Color Yellow Urine Clarity Clear Urine pH 7.0 Urine Specific [place] 1.015 Urine Protein Negativemg/dL (NEG-TRACE) Urine Glucose (UA) Negativemg/dL (NEG) Urine Ketones (Stick) Negativemg/dL (NEG) Urine Blood Negative (NEG) Urine Nitrite Negative (NEG) Urine Bilirubin Negative (NEG) Urine Urobilinogen Dipstick 1.0mg/dL (0.2 mg/dL) Urine Leukocyte Esterase Negative (NEG) Urine RBC 1-2/HPF (0-2) Urine WBC Rare/HPF (0-4) Urine Amorphous Sediment Present/HPF Urine Bacteria Few/HPF (0-FEW) Urine Mucus Mod/LPF White Blood Count 12.1x10^3/uL (4.0-11.0) 12.0x10^3/uL (4.0-11.0) Red Blood Count 5.02x10^6/uL (4.30-5.70) 4.68x10^6/uL (4.30-5.70) Hemoglobin 14.5g/dL (13.0-17.5) 13.3g/dL (13.0-17.5) Hematocrit 43.5% (39.0-53.0) 41.4% (39.0-53.0) Mean Corpuscular Volume 87fL (79-100) 88fL (79-100) Mean Corpuscular Hemoglobin 29pg (25-35) 29pg (25-35) Mean Corpuscular Hemoglobin Concent 33g/dL (31-37) 32g/dL (31-37) Red Cell Distribution Width 16.2% (11.5-14.5) 16.0% (11.5-14.5) Platelet Count 253x10^3/uL (140-400) 233x10^3/uL (140-400) Neutrophils (%) (Auto) 88% (31-73) 94% (31-73) Lymphocytes (%) (Auto) 5% (24-48) 4% (24-48) Monocytes (%) (Auto) 6% (0-9) 2% (0-9) Eosinophils (%) (Auto) 1% (0-3) 0% (0-3) Basophils (%) (Auto) 1% (0-3) 0% (0-3) Neutrophils # (Auto) 10.6x10^3uL (1.8-7.7) 11.3x10^3uL (1.8-7.7) Lymphocytes # (Auto) 0.7x10^3/uL (1.0-4.8) 0.4x10^3/uL (1.0-4.8) Monocytes # (Auto) 0.7x10^3/uL (0.0-1.1) 0.2x10^3/uL (0.0-1.1) Eosinophils # (Auto) 0.1x10^3/uL (0.0-0.7) 0.0x10^3/uL (0.0-0.7) Basophils # (Auto) 0.1x10^3/uL (0.0-0.2) 0.0x10^3/uL (0.0-0.2) Segmented Neutrophils % 85% (35-66) Band Neutrophils % 6% (0-9) Lymphocytes % 4% (24-48) Monocytes % 3% (0-10) Basophils % 2% (0-3) Platelet Estimate Adequate (ADEQUATE) Anisocytosis Slight Ovalocytes Few Prothrombin Time 14.2SEC (11.7-14.0) Prothromb Time International Ratio 1.2 (0.8-1.1) Activated Partial Thromboplast Time 34SEC (24-38) Sodium Level 140mmol/L (136-145) 131mmol/L (136-145) Potassium Level 4.4mmol/L (3.5-5.1) 4.1mmol/L (3.5-5.1) Chloride Level 102mmol/L (98-107) 97mmol/L (98-107) Carbon Dioxide Level 25mmol/L (21-32) 24mmol/L (21-32) Anion Gap 13 (6-14) 10 (6-14) Blood Urea Nitrogen 16mg/dL (8-26) 15mg/dL (8-26) Creatinine 0.9mg/dL (0.7-1.3) 0.9mg/dL (0.7-1.3) Estimated GFR (Cockcroft-Gault) 82.3 82.3 BUN/Creatinine Ratio 18 (6-20) Glucose Level 148mg/dL (70-99) 126mg/dL (70-99) Calcium Level 9.0mg/dL (8.5-10.1) 9.1mg/dL (8.5-10.1) Magnesium Level 2.1mg/dL (1.8-2.4) Total Bilirubin 0.5mg/dL (0.2-1.0) Aspartate Amino Transf (AST/SGOT) 19U/L (15-37) Alanine Aminotransferase (ALT/SGPT) 24U/L (16-63) Alkaline Phosphatase 107U/L (46-116) Troponin I Quantitative < 0.017ng/mL (0.000-0.055) Total Protein 7.5g/dL (6.4-8.2) Albumin 3.8g/dL (3.4-5.0) Albumin/Globulin Ratio 1.0 (1.0-1.7) Laboratory Tests Test 12/08/16 04:15 White Blood Count 12.0x10^3/uL (4.0-11.0) Red Blood Count 4.68x10^6/uL (4.30-5.70) Hemoglobin 13.3g/dL (13.0-17.5) Hematocrit 41.4% (39.0-53.0) Mean Corpuscular Volume 88fL (79-100) Mean Corpuscular Hemoglobin 29pg (25-35) Mean Corpuscular Hemoglobin Concent 32g/dL (31-37) Red Cell Distribution Width 16.0% (11.5-14.5) Platelet Count 233x10^3/uL (140-400) Neutrophils (%) (Auto) 94% (31-73) Lymphocytes (%) (Auto) 4% (24-48) Monocytes (%) (Auto) 2% (0-9) Eosinophils (%) (Auto) 0% (0-3) Basophils (%) (Auto) 0% (0-3) Neutrophils # (Auto) 11.3x10^3uL (1.8-7.7) Lymphocytes # (Auto) 0.4x10^3/uL (1.0-4.8) Monocytes # (Auto) 0.2x10^3/uL (0.0-1.1) Eosinophils # (Auto) 0.0x10^3/uL (0.0-0.7) Basophils # (Auto) 0.0x10^3/uL (0.0-0.2) Sodium Level 131mmol/L (136-145) Potassium Level 4.1mmol/L (3.5-5.1) Chloride Level 97mmol/L (98-107) Carbon Dioxide Level 24mmol/L (21-32) Anion Gap 10 (6-14) Blood Urea Nitrogen 15mg/dL (8-26) Creatinine 0.9mg/dL (0.7-1.3) Estimated GFR (Cockcroft-Gault) 82.3 Glucose Level 126mg/dL (70-99) Calcium Level 9.1mg/dL (8.5-10.1) Medications Current Medications Amlodipine Besylate (Norvasc) 5 mg 1X ONCE PO Last administered on 12/07/16 10:45; Start 12/07/16 at 10:15; Stop 12/07/16 at 10:16; Status DC Ondansetron HCl (Zofran) 4 mg 1X ONCE IV Last administered on 12/07/16 10:15 ; Start 12/07/16 at 10:15; Stop 12/07/16 at 10:16; Status DC Hydralazine HCl (Apresoline) 10 mg 1X ONCE IVP Last administered on 12/07/16 11:45; Start 12/07/16 at 11:30; Stop 12/07/16 at 11:31; Status DC Ondansetron HCl (Zofran) 4 mg PRN Q8HRS PRN IV NAUSEA/VOMITING Last administered on 12/07/16 21:34; Start 12/07/16 at 12:45; Stop 12/08/16 at 12:44 Morphine Sulfate 2 mg PRN Q2HR PRN IV PAIN Last administered on 12/07/16 23:40 ; Start 12/07/16 at 12:45; Stop 12/08/16 at 12:44 Acetaminophen (Tylenol) 650 mg PRN Q4HRS PRN PO FEVER Last administered on 12/07 13:16; Start 12/07/16 at 12:45; Stop 12/08/16 at 12:44 Hydralazine HCl (Apresoline) 10 mg PRN Q1HR PRN IVP SBP >160 Last administered on 12/07/16 17:42; Start 12/07/16 at 12:45 Gadobutrol (Gadavist) 10 mmol 1X ONCE IV Last administered on 12/07/16 14:08 ; Start 12/07/16 at 14:00; Stop 12/07/16 at 14:01; Status DC Gadobutrol (Gadavist) 4 mmol 1X ONCE IV Last administered on 12/07/16 14:08; Start 12/07/16 at 14:00; Stop 12/07/16 at 14:01; Status DC Dexamethasone Sodium Phosphate (Decadron) 4 mg Q6HRS IV Last administered on 06:33; Start 12/07/16 at 17:00 Citalopram Hydrobromide (Celexa) 10 mg DAILY PO ; Start 12/08/16 at 09:00 Non-Formulary Medication 1 puff DAILY IH ; Start 12/08/16 at 09:00; Status UNV Albuterol Sulfate (Ventolin Neb Soln) 2.5 mg RTQID NEB ; Start 12/08/16 at 09:00 Budesonide (Pulmicort) 0.5 mg RTBID NEB ; Start 12/08/16 at 09:00 Iohexol (Omnipaque 300 Mg/ml) 75 ml 1X ONCE IV Last administered on 12/08/16 10:31; Start 12/08/16 at 10:15; Stop 12/08/16 at 10:16; Status DC Iohexol (Omnipaque 240 Mg/ml) 50 ml 1X ONCE PO Last administered on 12/08/16 10:31; Start 12/08/16 at 10:15; Stop 12/08/16 at 10:16; Status DC Active Scripts Active Reported Citalopram Hbr (Citalopram Hydrobromide) 10 Mg Tablet 1 Tab PO DAILY Breo Ellipta 200-25 Mcg INH (Fluticasone/Vilanterol) 1 Each Blst.w.dev 1 Puff IH DAILY Vitals/I & O Vital Sign - Last 24 Hours 12/07/16 12/07/16 12/07/16 12/07/16 11:34 11:45 12:00 12:30 Pulse 82 79 88 98 Resp 20 B/P 212/93 223/102 208/104 219/98 Pulse Ox 99 96 96 O2 Delivery Room Air Room Air Room Air 12/07/16 12/07/16 12/07/16 12/07/16 13:00 13:17 13:27 14:00 Pulse 102 98 94 98 Resp 20 B/P 182/88 192/93 192/93 162/74 Pulse Ox 97 95 97 O2 Delivery Room Air Room Air Room Air 12/07/16 12/07/16 12/07/16 12/07/16 14:30 15:00 15:30 16:00 Pulse 100 99 104 106 Resp 20 B/P 167/87 168/82 184/91 173/88 Pulse Ox 96 97 97 97 O2 Delivery Room Air Room Air Room Air Room Air 12/07/16 12/07/16 12/07/16 12/07/16 16:30 17:38 17:39 17:42 Temp 97.7 97.7 97.7 97.7 Pulse 106 114 114 114 Resp B/P 170/80 181/98 181/98 181/98 Pulse Ox 96 95 O2 Delivery Room Air Room Air Room Air 12/07/16 12/07/16 12/07/16 12/07/16 17:47 19:25 20:00 23:35 Temp 97.7 98.6 97.7 98.6 Pulse 108 103 Resp 20 20 B/P 134/72 130/70 Pulse Ox 93 92 O2 Delivery Room Air Room Air Room Air Room Air 12/07/16 12/08/16 12/08/16 12/08/16 23:40 00:10 03:25 07:00 Temp 99.1 98.0 99.1 98.0 Pulse 97 93 Resp 20 18 18 B/P 139/67 127/71 Pulse Ox 96 96 92 94 O2 Delivery Room Air Room Air Room Air Room Air 12/08/16 07:36 O2 Delivery Room Air Intake and Output 12/07/16 12/07/16 12/08/16 15:00 23:00 07:00 Intake Total 600 ml Balance 600 ml GLADYS ROWELL MD Dec 08, 2016 11:27
--- NOTE | 2016-12-08 11:43 | RAD ---
Indication possible metastatic disease right temporal lobe. Abnormal MRI. Assess for potential primary. Imaging through the chest, abdomen and pelvis was performed. Both oral and IV contrast were administered. Approximately 75 cc of Omnipaque 300 was administered intravenously. Note is made of the CT and MRI examinations of the head one day earlier referencing pathology in the right temporal lobe. CT chest: Findings. The thoracic aorta is unremarkable. Extensive coronary artery calcification is noted. No significant hilar or mediastinal adenopathy is seen. Acute parenchymal infiltrate in either lung is not seen. A dominant soft tissue mass is not apparent. Evidence of primary or metastatic disease in the chest is not seen. A moderately large hiatus hernia is noted CT abdomen and pelvis: Findings. The liver and spleen appear unremarkable. The gallbladder appears grossly normal. No pancreatic pathology is seen. The adrenal glands appear normal. There is a large mass, most compatible with a cyst, measuring almost 10 cm in greatest dimension associated with the right kidney. There is no significant central or retroperitoneal adenopathy. An acute finding in the abdomen or pelvis is not seen. There is a left inguinal hernia. Evidence of primary or metastatic disease in the abdomen or pelvis is not seen. There is a small periumbilical hernia which appears uncomplicated. IMPRESSION: No acute finding seen in the chest, abdomen or pelvis. No evidence of primary or metastatic disease seen. Moderately large hiatus hernia. Large right renal cyst PQRS Compliance Statement: One or more of the following individualized dose reduction techniques were utilized for this examination: 1. Automated exposure control 2. Adjustment of the mA and/or kV according to patient size 3. Use of iterative reconstruction technique
[2016-12-08] MEDS: BUDESONIDE 0.5 MG/2 ML NEBU NEB SCH ×2 (11:49→19:54)
[2016-12-08] MEDS: ALBUTEROL SULFATE 2.5 MG/3 ML NEBU. NEB SCH ×4 (11:52→19:54)
[2016-12-08] MEDS ORDERED: OMEP20CA9 PO (12:03)
[2016-12-08] MEDS: PANTOPRAZOLE 40 MG TABLET. PO SCH (12:18)
[2016-12-08 15:00] VITALS: BP 145/77
[2016-12-08 19:54] VITALS: BP 132/72
--- NOTE | 2016-12-08 22:03 | HP ---
ADMIT DATE: 12/07/2016 CHIEF COMPLAINT AND HISTORY OF PRESENT ILLNESS: This is a 76-year-old white male, who is well known to me from followup in the office. The patient was admitted through the Emergency Room after working up for dizziness and feeling weak all over. He was found to have a left parietal process going on that was unable to be characterized, a left temporal lobe process going on suggesting mass, subacute hemorrhage, and possible infectious process, admitted for the same. PAST MEDICAL HISTORY: Remarkable for asthma, GERD, history of colon cancer, has a history of BPH, osteoarthritis of his right knee, and depression. PAST SURGICAL HISTORY: Remarkable for partial colectomy and vasectomy. MEDICATIONS: Brought with the patient, listed on the computer and have been addressed. ALLERGIES: No known drug allergies. SOCIAL HISTORY: He is , nonsmoker, nondrinker, does not use drugs. FAMILY HISTORY: Noncontributory. REVIEW OF SYSTEMS: As mentioned above. PHYSICAL EXAMINATION: GENERAL: He is a well-developed, well-nourished, pleasant white male, in no acute distress. Son is present during my examination. VITAL SIGNS: Stable. He is afebrile. Blood pressure was elevated on admission, but has come down nicely. HEAD, EYES, EARS, NOSE, AND THROAT: Remarkable for glasses. NECK: Supple without ____ thyromegaly. There are no carotid bruits. CHEST: Clear to auscultation and percussion. HEART: Regular rate and rhythm without S3, S4, murmur. ABDOMEN: Soft, nontender, without hepatosplenomegaly or masses. EXTREMITIES: Without cyanosis, clubbing, or edema. NEUROLOGIC: Intact. LABORATORY DATA: Initial lab work is essentially unremarkable. IMPRESSION: Weakness and dizziness secondary to left temporal process as noted above of uncertain etiology at this point in time with multiple other problems listed above. PLAN: The patient has been admitted. Neurology as well as Neurosurgery has been consulted. MRI has been done and the patient will be monitored, managed, and treated appropriately. ZAY MILES MD DR: ARTHUR/layla JOB#: [id number] / [id number]
[2016-12-08 23:48] VITALS: BP 135/66
[2016-12-09] MEDS: DEXAMETHASONE SOD PHOS 4 MG/ML VIAL IV SCH ×2 (00:05→06:00)
[2016-12-09 03:17] VITALS: BP 152/84
[2016-12-09 07:00] VITALS: BP 163/83
[2016-12-09] MEDS: CITALOPRAM 10 MG TABLET. PO SCH (07:19)
[2016-12-09] MEDS: PANTOPRAZOLE 40 MG TABLET. PO SCH (07:19)
[2016-12-09] MEDS: BUDESONIDE 0.5 MG/2 ML NEBU NEB SCH ×2 (07:27→20:40)
[2016-12-09] MEDS: ALBUTEROL SULFATE 2.5 MG/3 ML NEBU. NEB SCH ×4 (07:27→20:40)
--- NOTE | 2016-12-09 08:05 | PDOC ---
GENERAL General: vss and afebrile. awake and alert and family in attendance. some hallucinations( seeing cats and mice in room) likely related to decadron. slow and difficult getting out of chair so will ask for therapy eval. likely best option at [place] is snu if qualifies with mobility issues and mental status changes as he lives alone. Imaging for another lesion negative and neurosurgery plans noted. Problems: VITAL SIGNS Vital Signs: Vital Signs Date Time Temp Pulse Resp B/P Pulse Ox O2 Delivery O2 Flow Rate FiO2 12/09/16 07:27 98 Room Air 12/09/16 07:00 97.9 85 20 163/83 97.9 I & O I & O Intake and Output 12/09/16 07:00 Intake Total 1800 ml Output Total 450 ml Balance 1350 ml Intake Oral 1800 ml Output Urine Total 450 ml # Voids 9 ALLERGIES Allergies: Allergies Coded Allergies Type Severity Reaction Last Updated Verified No Known Drug Allergies 12/07/16 No MEDS Medications: Current Medications Medications (Trade) Dose Ordered Sig/Pankaj Start Time Stop Time Status Last Admin Dose Admin Acetaminophen (Tylenol) 650 mg PRN Q4HRS PRN 12/07/16 12:45 12/08/16 12:44 DC 12/07/16 13:16 650 MG Albuterol Sulfate (Ventolin Neb Soln) 2.5 mg RTQID 12/08/16 09:00 12/09/16 07:27 2.5 MG Amlodipine Besylate (Norvasc) 5 mg 1X ONCE 12/07/16 10:15 12/07/16 10:16 DC 12/07/16 10:45 5 MG Budesonide (Pulmicort) 0.5 mg RTBID 12/08/16 09:00 12/09/16 07:27 0.5 MG Citalopram Hydrobromide (Celexa) 10 mg DAILY 12/08/16 09:00 12/09/16 07:19 10 MG Dexamethasone Sodium Phosphate (Decadron) 4 mg Q6HRS 12/07/16 17:00 12/09/16 06:00 4 MG Gadobutrol (Gadavist) 4 mmol 1X ONCE 12/07/16 14:00 12/07/16 14:01 DC 12/07/16 14:08 4 MMOL Hydralazine HCl (Apresoline) 10 mg PRN Q1HR PRN 12/07/16 12:45 12/07/16 17:42 10 MG Iohexol (Omnipaque 240 Mg/ml) 50 ml 1X ONCE 12/08/16 10:15 12/08/16 10:16 DC 12/08/16 10:31 50 ML Iohexol (Omnipaque 300 Mg/ml) 75 ml 1X ONCE 12/08/16 10:15 12/08/16 10:16 DC 12/08/16 10:31 75 ML Morphine Sulfate 2 mg PRN Q2HR PRN 12/07/16 12:45 12/08/16 12:44 DC 12/07/16 23:40 2 MG Non-Formulary Medication 1 puff DAILY 12/08/16 09:00 UNV Ondansetron HCl (Zofran) 4 mg PRN Q8HRS PRN 12/07/16 12:45 12/08/16 12:44 DC 12/07/16 21:34 4 MG Pantoprazole Sodium (Protonix) 40 mg DAILYAC 12/08/16 12:00 12/09/16 07:19 40 MG ZAY MILES MD Dec 09, 2016 08:05
[2016-12-09 11:00] VITALS: BP 146/74
--- NOTE | 2016-12-09 12:28 | PDOC ---
PROGRESS NOTES Assessment Problems Medical Problems: (1) Abnormal brain CT Status: Acute (2) Dizziness Status: Acute Right temporal lobe lesion. Metastatic workup negative Some hallucinations, may be related to Decadron Plan Reduce decadron to 4 mg orally daily Note neurosurgery plans to delay any surgery and check a follow-up MRI Discussed with patient's daughter Transfer to custodial unit Subjective No complaints, but was having some hallucinations Objective Vital Signs Date Time Temp Pulse Resp B/P Pulse Ox O2 Delivery O2 Flow Rate FiO2 12/09/16 11:04 Room Air 12/09/16 11:00 97.9 83 20 146/74 97 97.9 Intake and Output 12/09/16 07:00 Intake Total 1800 ml Output Total 450 ml Balance 1350 ml Intake Oral 1800 ml Output Urine Total 450 ml # Voids 9 PHYSICAL EXAM Alert. Oriented to time, place and person. PERRL. EOMI. CN: no focal findings. Muscle tone: normal. Muscle strength: 5/5 DTR: 2+ Plantar reflex: flexor Gait: not examined in bed. Sensory exam: no abnormal findings. No cerebellar signs elicited. Review of Relevant I have reviewed the following items abran (where applicable) has been applied. Labs Laboratory Tests Test 12/08/16 04:15 White Blood Count 12.0x10^3/uL (4.0-11.0) Red Blood Count 4.68x10^6/uL (4.30-5.70) Hemoglobin 13.3g/dL (13.0-17.5) Hematocrit 41.4% (39.0-53.0) Mean Corpuscular Volume 88fL (79-100) Mean Corpuscular Hemoglobin 29pg (25-35) Mean Corpuscular Hemoglobin Concent 32g/dL (31-37) Red Cell Distribution Width 16.0% (11.5-14.5) Platelet Count 233x10^3/uL (140-400) Neutrophils (%) (Auto) 94% (31-73) Lymphocytes (%) (Auto) 4% (24-48) Monocytes (%) (Auto) 2% (0-9) Eosinophils (%) (Auto) 0% (0-3) Basophils (%) (Auto) 0% (0-3) Neutrophils # (Auto) 11.3x10^3uL (1.8-7.7) Lymphocytes # (Auto) 0.4x10^3/uL (1.0-4.8) Monocytes # (Auto) 0.2x10^3/uL (0.0-1.1) Eosinophils # (Auto) 0.0x10^3/uL (0.0-0.7) Basophils # (Auto) 0.0x10^3/uL (0.0-0.2) Sodium Level 131mmol/L (136-145) Potassium Level 4.1mmol/L (3.5-5.1) Chloride Level 97mmol/L (98-107) Carbon Dioxide Level 24mmol/L (21-32) Anion Gap 10 (6-14) Blood Urea Nitrogen 15mg/dL (8-26) Creatinine 0.9mg/dL (0.7-1.3) Estimated GFR (Cockcroft-Gault) 82.3 Glucose Level 126mg/dL (70-99) Calcium Level 9.1mg/dL (8.5-10.1) Medications Current Medications Amlodipine Besylate (Norvasc) 5 mg 1X ONCE PO Last administered on 12/07/16 10:45; Start 12/07/16 at 10:15; Stop 12/07/16 at 10:16; Status DC Ondansetron HCl (Zofran) 4 mg 1X ONCE IV Last administered on 12/07/16 10:15 ; Start 12/07/16 at 10:15; Stop 12/07/16 at 10:16; Status DC Hydralazine HCl (Apresoline) 10 mg 1X ONCE IVP Last administered on 12/07/16 11:45; Start 12/07/16 at 11:30; Stop 12/07/16 at 11:31; Status DC Ondansetron HCl (Zofran) 4 mg PRN Q8HRS PRN IV NAUSEA/VOMITING Last administered on 12/07/16 21:34; Start 12/07/16 at 12:45; Stop 12/08/16 at 12:44 ; Status DC Morphine Sulfate 2 mg PRN Q2HR PRN IV PAIN Last administered on 12/07/16 23:40 ; Start 12/07/16 at 12:45; Stop 12/08/16 at 12:44; Status DC Acetaminophen (Tylenol) 650 mg PRN Q4HRS PRN PO FEVER Last administered on 12/07 13:16; Start 12/07/16 at 12:45; Stop 12/08/16 at 12:44; Status DC Hydralazine HCl (Apresoline) 10 mg PRN Q1HR PRN IVP SBP >160 Last administered on 12/07/16 17:42; Start 12/07/16 at 12:45 Gadobutrol (Gadavist) 10 mmol 1X ONCE IV Last administered on 12/07/16 14:08 ; Start 12/07/16 at 14:00; Stop 12/07/16 at 14:01; Status DC Gadobutrol (Gadavist) 4 mmol 1X ONCE IV Last administered on 12/07/16 14:08; Start 12/07/16 at 14:00; Stop 12/07/16 at 14:01; Status DC Dexamethasone Sodium Phosphate (Decadron) 4 mg Q6HRS IV Last administered on 06:00; Start 12/07/16 at 17:00; Stop 12/09/16 at 09:29; Status DC Citalopram Hydrobromide (Celexa) 10 mg DAILY PO Last administered on 12/09/16 07:19; Start 12/08/16 at 09:00 Non-Formulary Medication 1 puff DAILY IH ; Start 12/08/16 at 09:00; Status UNV Albuterol Sulfate (Ventolin Neb Soln) 2.5 mg RTQID NEB Last administered on 11:03; Start 12/08/16 at 09:00 Budesonide (Pulmicort) 0.5 mg RTBID NEB Last administered on 12/09/16 07:27; Start 12/08/16 at 09:00 Iohexol (Omnipaque 300 Mg/ml) 75 ml 1X ONCE IV Last administered on 12/08/16 10:31; Start 12/08/16 at 10:15; Stop 12/08/16 at 10:16; Status DC Iohexol (Omnipaque 240 Mg/ml) 50 ml 1X ONCE PO Last administered on 12/08/16 10:31; Start 12/08/16 at 10:15; Stop 12/08/16 at 10:16; Status DC Pantoprazole Sodium (Protonix) 40 mg DAILYAC PO Last administered on 12/09/16t 07:19; Start 12/08/16 at 12:00 Dexamethasone (Decadron) 4 mg DAILYWBKFT PO ; Start 12/10/16 at 08:00 Active Scripts Active Reported Omeprazole 20 Mg Capsule.dr 1 Cap PO DAILY Citalopram Hbr (Citalopram Hydrobromide) 10 Mg Tablet 1 Tab PO DAILY Breo Ellipta 200-25 Mcg INH (Fluticasone/Vilanterol) 1 Each Blst.w.dev 1 Puff IH DAILY Vitals/I & O Vital Sign - Last 24 Hours 12/08/16 12/08/16 12/08/16 12/08/16 15:00 15:34 19:54 19:56 Temp 97.9 97.9 97.9 97.9 Pulse 78 69 Resp 18 20 B/P 145/77 132/72 Pulse Ox 96 96 96 96 O2 Delivery Room Air Room Air Room Air Room Air 12/08/16 12/08/16 12/09/16 12/09/16 20:00 23:48 03:17 07:00 Temp 97.7 98.4 97.9 97.7 98.4 97.9 Pulse 73 73 85 Resp 20 20 20 B/P 135/66 152/84 163/83 Pulse Ox 95 96 99 O2 Delivery Room Air Room Air Room Air Room Air 12/09/16 12/09/16 12/09/16 12/09/16 07:27 08:00 11:00 11:04 Temp 97.9 97.9 Pulse 83 Resp 20 B/P 146/74 Pulse Ox 98 97 O2 Delivery Room Air Room Air Room Air Room Air Intake and Output 12/08/16 12/08/16 12/09/16 15:00 23:00 07:00 Intake Total 230 ml 500 ml 1070 ml Output Total 450 ml Balance 230 ml 50 ml [address] chest, abdomen, pelvis, negative GLADYS ROWELL MD Dec 09, 2016 12:28
--- NOTE | 2016-12-09 13:22 | PDOC ---
SUBJECTIVE Subjective Denies acute complaints. Walking around room. Pleasant and talkative. Reported hallucinations overnight. Decrease in steroid noted. OBJECTIVE Vital Signs Vital Signs Date Time Temp Pulse Resp B/P Pulse Ox O2 Delivery O2 Flow Rate FiO2 12/09/16 11:04 Room Air 12/09/16 11:00 97.9 83 20 146/74 97 Room Air 97.9 12/09/16 08:00 Room Air 12/09/16 07:27 98 Room Air 12/09/16 07:00 97.9 85 20 163/83 99 Room Air 97.9 12/09/16 03:17 98.4 73 20 152/84 96 Room Air 98.4 12/08/16 23:48 97.7 73 20 135/66 95 Room Air 97.7 12/08/16 20:00 Room Air 12/08/16 19:56 96 Room Air 12/08/16 19:54 97.9 69 20 132/72 96 Room Air 97.9 12/08/16 15:34 96 Room Air 12/08/16 15:00 97.9 78 18 145/77 96 Room Air 97.9 I & O Intake and Output 12/09/16 07:00 Intake Total 1800 ml Output Total 450 ml Balance 1350 ml Intake Oral 1800 ml Output Urine Total 450 ml # Voids 9 PHYSICAL EXAM Physical Exam AA, NAD, speech fluent, smiling and pleasant, RESENDIZ 5/5, sensation intact LT ASSESSMENT/PLAN Assessment/Plan 76M with temporal lesion - neurologically stable and intact -SNF pending -follow-up few weeks with repeat MRI brain with/without contrast -monitor for changes otherwise -again discussed plan with patient and family at length, all questions answered , all in agreement Problems: IRENE GONCALVES MD Dec 09, 2016 13:22
[2016-12-09 15:00] VITALS: BP 149/84
[2016-12-09 19:29] VITALS: BP 154/82
[2016-12-09 23:00] VITALS: BP 160/99
[2016-12-10 07:00] VITALS: BP 173/94
[2016-12-10] MEDS: BUDESONIDE 0.5 MG/2 ML NEBU NEB SCH (07:58)
[2016-12-10] MEDS: ALBUTEROL SULFATE 2.5 MG/3 ML NEBU. NEB SCH ×2 (07:58→11:53)
[2016-12-10] MEDS ORDERED: DEXAMETHASONE 4 MG TABLET PO SCH (08:00)
--- NOTE | 2016-12-10 08:25 | PDOC ---
GENERAL General: see discharge summary. Problems: VITAL SIGNS Vital Signs: Vital Signs Date Time Temp Pulse Resp B/P Pulse Ox O2 Delivery O2 Flow Rate FiO2 12/10/16 07:58 96 Room Air 12/10/16 07:00 98.4 68 18 173/94 98.4 I & O I & O Intake and Output 12/10/16 07:00 Intake Total 1520 ml Balance 1520 ml Intake Oral 1520 ml # Voids 5 ALLERGIES Allergies: Allergies Coded Allergies Type Severity Reaction Last Updated Verified No Known Drug Allergies 12/07/16 No MEDS Medications: Current Medications Medications (Trade) Dose Ordered Sig/Pankaj Start Time Stop Time Status Last Admin Dose Admin Acetaminophen (Tylenol) 650 mg PRN Q4HRS PRN 12/07/16 12:45 12/08/16 12:44 DC 12/07/16 13:16 650 MG Albuterol Sulfate (Ventolin Neb Soln) 2.5 mg RTQID 12/08/16 09:00 12/10/16 07:58 2.5 MG Amlodipine Besylate (Norvasc) 5 mg 1X ONCE 12/07/16 10:15 12/07/16 10:16 DC 12/07/16 10:45 5 MG Budesonide (Pulmicort) 0.5 mg RTBID 12/08/16 09:00 12/10/16 07:58 0.5 MG Citalopram Hydrobromide (Celexa) 10 mg DAILY 12/08/16 09:00 12/09/16 07:19 10 MG Dexamethasone (Decadron) 4 mg DAILYWBKFT 12/10/16 08:00 Dexamethasone Sodium Phosphate (Decadron) 4 mg Q6HRS 12/07/16 17:00 12/09/16 09:29 DC 12/09/16 06:00 4 MG Gadobutrol (Gadavist) 4 mmol 1X ONCE 12/07/16 14:00 12/07/16 14:01 DC 12/07/16 14:08 4 MMOL Hydralazine HCl (Apresoline) 10 mg PRN Q1HR PRN 12/07/16 12:45 12/07/16 17:42 10 MG Iohexol (Omnipaque 240 Mg/ml) 50 ml 1X ONCE 12/08/16 10:15 12/08/16 10:16 DC 12/08/16 10:31 50 ML Iohexol (Omnipaque 300 Mg/ml) 75 ml 1X ONCE 12/08/16 10:15 12/08/16 10:16 DC 12/08/16 10:31 75 ML Morphine Sulfate 2 mg PRN Q2HR PRN 12/07/16 12:45 12/08/16 12:44 DC 12/07/16 23:40 2 MG Non-Formulary Medication 1 puff DAILY 12/08/16 09:00 UNV Ondansetron HCl (Zofran) 4 mg PRN Q8HRS PRN 12/07/16 12:45 12/08/16 12:44 DC 12/07/16 21:34 4 MG Pantoprazole Sodium (Protonix) 40 mg DAILYAC 12/08/16 12:00 12/09/16 07:19 40 MG ZAY MILES MD Dec 10, 2016 08:25
[2016-12-10] MEDS: PANTOPRAZOLE 40 MG TABLET. PO SCH (08:51)
[2016-12-10] MEDS: CITALOPRAM 10 MG TABLET. PO SCH (08:53)
[2016-12-10 11:00] VITALS: BP 143/87
--- NOTE | 2016-12-10 12:09 | PDOC ---
PROGRESS NOTES Assessment Problems Medical Problems: (1) Abnormal brain CT Status: Acute (2) Dizziness Status: Acute Right temporal lobe lesion. Metastatic workup negative Some hallucinations, may be related to Decadron, better with lower dose Plan Continue decadron to 4 mg orally daily Note neurosurgery plans to delay any surgery and check a follow-up MRI Transfer to care home unit Subjective Hallucinations are better with lower Decadron dose Objective Vital Signs Date Time Temp Pulse Resp B/P Pulse Ox O2 Delivery O2 Flow Rate FiO2 12/10/16 11:53 Room Air 12/10/16 11:00 98.0 72 18 143/87 95 98.0 Intake and Output 12/10/16 07:00 Intake Total 1520 ml Balance 1520 ml Intake Oral 1520 ml # Voids 5 PHYSICAL EXAM Alert. Oriented to time, place and person. PERRL. EOMI. CN: no focal findings. Muscle tone: normal. Muscle strength: 5/5 DTR: 2+ Plantar reflex: flexor Gait: slight apraxia. Sensory exam: no abnormal findings. No cerebellar signs elicited. Review of Relevant I have reviewed the following items abran (where applicable) has been applied. Medications Current Medications Amlodipine Besylate (Norvasc) 5 mg 1X ONCE PO Last administered on 12/07/16 10:45; Start 12/07/16 at 10:15; Stop 12/07/16 at 10:16; Status DC Ondansetron HCl (Zofran) 4 mg 1X ONCE IV Last administered on 12/07/16 10:15 ; Start 12/07/16 at 10:15; Stop 12/07/16 at 10:16; Status DC Hydralazine HCl (Apresoline) 10 mg 1X ONCE IVP Last administered on 12/07/16 11:45; Start 12/07/16 at 11:30; Stop 12/07/16 at 11:31; Status DC Ondansetron HCl (Zofran) 4 mg PRN Q8HRS PRN IV NAUSEA/VOMITING Last administered on 12/07/16 21:34; Start 12/07/16 at 12:45; Stop 12/08/16 at 12:44 ; Status DC Morphine Sulfate 2 mg PRN Q2HR PRN IV PAIN Last administered on 12/07/16 23:40 ; Start 12/07/16 at 12:45; Stop 12/08/16 at 12:44; Status DC Acetaminophen (Tylenol) 650 mg PRN Q4HRS PRN PO FEVER Last administered on 12/07 13:16; Start 12/07/16 at 12:45; Stop 12/08/16 at 12:44; Status DC Hydralazine HCl (Apresoline) 10 mg PRN Q1HR PRN IVP SBP >160 Last administered on 12/07/16 17:42; Start 12/07/16 at 12:45 Gadobutrol (Gadavist) 10 mmol 1X ONCE IV Last administered on 12/07/16 14:08 ; Start 12/07/16 at 14:00; Stop 12/07/16 at 14:01; Status DC Gadobutrol (Gadavist) 4 mmol 1X ONCE IV Last administered on 12/07/16 14:08; Start 12/07/16 at 14:00; Stop 12/07/16 at 14:01; Status DC Dexamethasone Sodium Phosphate (Decadron) 4 mg Q6HRS IV Last administered on 06:00; Start 12/07/16 at 17:00; Stop 12/09/16 at 09:29; Status DC Citalopram Hydrobromide (Celexa) 10 mg DAILY PO Last administered on 12/10/16 08:53; Start 12/08/16 at 09:00 Non-Formulary Medication 1 puff DAILY IH ; Start 12/08/16 at 09:00; Status UNV Albuterol Sulfate (Ventolin Neb Soln) 2.5 mg RTQID NEB Last administered on 11:53; Start 12/08/16 at 09:00 Budesonide (Pulmicort) 0.5 mg RTBID NEB Last administered on 12/10/16 07:58; Start 12/08/16 at 09:00 Iohexol (Omnipaque 300 Mg/ml) 75 ml 1X ONCE IV Last administered on 12/08/16 10:31; Start 12/08/16 at 10:15; Stop 12/08/16 at 10:16; Status DC Iohexol (Omnipaque 240 Mg/ml) 50 ml 1X ONCE PO Last administered on 12/08/16 10:31; Start 12/08/16 at 10:15; Stop 12/08/16 at 10:16; Status DC Pantoprazole Sodium (Protonix) 40 mg DAILYAC PO Last administered on 12/10/16 08:51; Start 12/08/16 at 12:00 Dexamethasone (Decadron) 4 mg DAILYWBKFT PO Last administered on 12/10/16 08: 51; Start 12/10/16 at 08:00 Active Scripts Active Reported Omeprazole 20 Mg Capsule.dr 1 Cap PO DAILY Citalopram Hbr (Citalopram Hydrobromide) 10 Mg Tablet 1 Tab PO DAILY Breo Ellipta 200-25 Mcg INH (Fluticasone/Vilanterol) 1 Each Blst.w.dev 1 Puff IH DAILY Vitals/I & O Vital Sign - Last 24 Hours 12/09/16 12/09/16 12/09/16 12/09/16 15:00 15:10 19:29 20:00 Temp 98.2 98.5 98.2 98.5 Pulse 84 73 Resp 20 18 B/P 149/84 154/82 Pulse Ox 95 95 O2 Delivery Room Air Room Air Room Air Room Air 12/09/16 12/09/16 12/10/16 12/10/16 20:42 23:00 03:00 07:00 Temp 98.3 98.4 98.3 98.4 Pulse 89 68 Resp 18 18 B/P 160/99 173/94 Pulse Ox 95 97 96 O2 Delivery Room Air Room Air Room Air Room Air 12/10/16 12/10/16 12/10/16 12/10/16 07:58 08:00 11:00 11:53 Temp 98.0 98.0 Pulse 72 Resp 18 B/P 143/87 Pulse Ox 96 95 O2 Delivery Room Air Room Air Room Air Room Air Intake and Output 12/09/16 12/09/16 12/10/16 15:00 23:00 07:00 Intake Total 120 ml 600 ml 800 ml Balance 120 ml 600 ml 800 ml GLADYS ROWELL MD Dec 10, 2016 12:09
[2016-12-10] MEDS ORDERED: BUDESONIDE 0.5 MG/2 ML NEBU. NEB SCH (20:00)
--- NOTE | 2016-12-11 23:55 | DS ---
DATE OF DISCHARGE: 12/10/2016 PRIMARY DIAGNOSES: Right parietal mass, currently uncharacterized picture with differential being tumor and fractures or CVA, generalized weakness, dizziness, hallucinations likely due to Decadron during the stay, asthma, history of colon cancer. CHIEF COMPLAINT AND HISTORY OF PRESENT ILLNESS: This is a 76-year-old white male, who is well known to me in followup in the office. He was admitted through the Emergency Room feeling dizzy and weak allover with finding of a right temporal lobe mass. SUMMARY OF STAY: The patient was admitted. Neurology and Neurosurgery were consulted, placed on Decadron ____ with some hallucinations following the same ____. He has had a workup including a metastatic workup with CT chest, abdomen, and pelvis with no findings. Lab work was unrevealing. MRI still was unable to characterize this lesion fully. He had no definite focal neurological deficits. Because of the hallucinations as well as the generalized weakness, it was felt he should go to retirement with Neurosurgery plans for another MRI in a 2-3 week period of time to try to further characterize and make plans regarding biopsy etc. at that point in time. DISPOSITION: The patient was transferred to retirement. Please see orders regarding diet, medication, activity, etc. We will continue to follow him there. AZY MILES MD DR: ARTHUR/layla JOB#: [id number] / [id number]
== END 2016-12-10 14:26 | DRG 64 ==
LOC: ER 09:17 → 6 SOUTH 12:21
PROVIDERS: ADMIT Family Medicine; ATTEND Family Medicine
DX: I63.9 Cerebral infarction, unspecified (principal); G92 Toxic encephalopathy; R44.3 Hallucinations, unspecified; D33.2 Benign neoplasm of brain, unspecified; R42 Dizziness and giddiness; K21.9 Gastro-esophageal reflux disease without esophagitis; J45.909 Unspecified asthma, uncomplicated; Z85.038 Personal history of other malignant neoplasm of large intestine; M17.11 Unilateral primary osteoarthritis, right knee; N40.0 Benign prostatic hyperplasia without lower urinary tract symptoms; R53.1 Weakness; I10 Essential (primary) hypertension; D72.829 Elevated white blood cell count, unspecified; T38.0X5A Adverse effect of glucocorticoids and synthetic analogues, initial encounter
CPT/HCPCS: 36415; 70450; 70553; 71010; 71260; 74177; 80048; 80053; 81001; 83735; 84484; 85007; 85027; 85610; 85730; 93005; 94640; 94760; 96374; 96375; A9585; J0360; J1100; J2270; J2405; J8540; Q9966; Q9967; 99285-25

== ENCOUNTER → 2017-01-01 | Outpatient (CLI) | payer MEDICARE ==
[2016-12-10 11:00] VITALS: BP 143/87
[~2017-01-01] MED LIST: BREO ELLIPTA 21 EACH IH; CITA10TA4 PO; GADOBUTROL 10 MMOL/10 ML VIAL IV ONE; OMEP20CA9 PO
--- NOTE | 2017-01-01 13:25 | RAD ---
BRAIN WO/W CONTRAST Indication: FOLLOW UP BRAIN MASS, NO PT COMPLAINTS, NO SX HX, PRIOR MRI, 10ML GADAVIST Reason: / Spl. Instructions: / History: COMPARISON: December 07, 2016 MRI brain TECHNIQUE: Axial diffusion weighted imaging was obtained. Additional sagittal T1, axial T1, axial FLAIR, and axial T2 weighted imaging of the brain was also performed. Postcontrast T1 weighted imaging was also performed after intravenous administration of gadolinium based contrast. FINDINGS: There has been progression of edema in the right temporal lobe. There has also been significant progression of enhancement within the central portion of the area of edema in the right temporal lobe. No midline shift or mass effect. Ventricles are normal in size. No acute intracranial hemorrhage or extra-axial fluid collection. Midline structures have a normal anatomic configuration. Pituitary gland and infundibulum are unremarkable. Basal cisterns are patent. Arterial flow voids at the skull base and major dural venous sinuses are maintained. Globes and orbits are unremarkable. Paranasal sinuses and mastoid air cells are clear. IMPRESSION: - There has been progression of edema and enhancement within the right temporal lobe. Recommend strongly considering herpes encephalitis as a possible etiology. This could also represent neoplasm. Subacute infarction is unlikely given the progression of edema and enhancement. Electronically signed by: Silvio Medina (Jan 01, 2017 13:23:31)
== END | disposition home or self-care (01) ==
LOC: MRI 13:41
PROVIDERS: ATTEND Family Medicine
DX: G93.9 Disorder of brain, unspecified (principal)
CPT/HCPCS: 70553; A9585

== ENCOUNTER → 2017-02-03 | Outpatient (CLI) | payer MEDICARE ==
[~2017-02-03] MED LIST changes: +CITA20TA5 PO; +DEXA4TAB PO; -GADOBUTROL 10 MMOL/10 ML VIAL IV ONE; +METO50TA2 PO
[2017-02-03 15:34] LABS: BASO % 0 % (0-3); EOS % 0 % (0-3); HEMATOCRIT 40.1 % (39.0-53.0); HEMOGLOBIN 13.6 g/dL (13.0-17.5); LYMPH # 0.8 x10^3/uL (1.0-4.8); LYMPH % 6 % (24-48); MEAN CORPUSCULAR HEMOGLOBIN 30 pg (25-35); MEAN CORPUSCULAR HGB CONC 34 g/dL (31-37); MEAN CORPUSCULAR VOLUME 90 fL (79-100); MONO % 6 % (0-9); NEUT % 87 % (31-73); PLATELET COUNT 222 x10^3/uL (140-400); RED BLOOD COUNT 4.46 x10^6/uL (4.30-5.70); RED CELL DISTRIBUTION WIDTH 16.5 % (11.5-14.5); WHITE BLOOD COUNT 14.6 x10^3/uL (4.0-11.0)
[2017-02-03 15:44] LABS: INR 1.1 (0.8-1.1); PROTHROMBIN TIME PATIENT 13.6 SEC (11.7-14.0)
[2017-02-03 15:53] LABS: ALBUMIN 2.9 g/dL (3.4-5.0); ALBUMIN/GLOBULIN RATIO 0.9 (1.0-1.7); CALCIUM 8.5 mg/dL (8.5-10.1); CREATININE 0.9 mg/dL (0.7-1.3); TOTAL BILIRUBIN 0.3 mg/dL (0.2-1.0); TOTAL PROTEIN 6.1 g/dL (6.4-8.2)
[2017-02-03 15:57] LABS: PLT ESTIMATE ADEQUATE (ADEQUATE)
== END | disposition home or self-care (01) ==
LOC: SURGPAT 13:51
PROVIDERS: ATTEND Neurological Surgery
DX: Z01.812 Encounter for preprocedural laboratory examination (principal)
CPT/HCPCS: 36415; 80053; 85007; 85027; 85610; 85730; 87641

== ENCOUNTER 2017-02-08 08:00 | Inpatient (IN) | payer MEDICARE ==
[~2017-02-08] VITALS: Ht 182.9 cm; Wt 147.4 kg
[2017-02-16] VITALS (12 sets, daily range): BP systolic 110–178; BP diastolic 61–86
[2017-02-16] MEDS ORDERED: BACITRACIN 50,000 UNIT in IV NORMAL SALINE 1000ML BAG 1,000 ML IRR ONE (06:00)
[2017-02-16] MEDS ORDERED: fentaNYL PF VIAL 100 MCG/2 ML VIAL IV PRN ×3 (07:00→13:30)
[2017-02-16] MEDS ORDERED: HYDROmorphone 2 MG/ML VIAL IV PRN (07:00)
[2017-02-16] MEDS ORDERED: LIDOCAINE 1% 1 ML SYRINGE. ID PRN (07:00)
[2017-02-16] MEDS ORDERED: PROCHLORPERAZINE 10 MG/2 ML VIAL. IV PRN (07:00)
[2017-02-16] MEDS ORDERED: IV RINGERS,LACTATED 1000ML 1,000 ML IV SCH (07:00)
[2017-02-16] MEDS ORDERED: MORPHINE SULFATE 2 MG/ML DISP.SYRIN. IV PRN (07:00)
[2017-02-16] MEDS ORDERED: BREO ELLIPTA 11 EACH IH (07:07)
[2017-02-16] MEDS ORDERED: LIDOCAINE 1%/EPI 1:100,000 20 ML VIAL. ONE (07:10)
[2017-02-16] MEDS ORDERED: GELATIN MUCOSAL POWDER. ONE ×2 (07:10→10:41)
[2017-02-16] MEDS ORDERED: THROMBIN TOPICAL 20,000 UNIT SPRAY.SYRN KIT TP ONE ×2 (07:10→10:41)
[2017-02-16] MEDS ORDERED: BACITRACIN TOPICAL OINT 14GM TUBE. TP ONE (07:10)
[2017-02-16] MEDS ORDERED: GELATIN SPONGE SIZE 100. ONE (07:10)
[2017-02-16] MEDS ORDERED: GADOBUTROL 10 MMOL/10 ML VIAL IV ONE (07:30)
[2017-02-16] MEDS ORDERED: MIDAZOLAM HCL/PF 2 MG/2 ML VIAL. ONE (08:19)
[2017-02-16] MEDS ORDERED: REMIFENTANIL 2 MG VIAL. IV ONE ×2 (08:19→11:38)
[2017-02-16] MEDS ORDERED: ROCURONIUM 50 MG/5 ML VIAL. ONE ×2 (08:20→10:05)
[2017-02-16] MEDS ORDERED: fentaNYL PF VIAL 100 MCG/2 ML VIAL ONE (08:20)
[2017-02-16] MEDS ORDERED: MANNITOL 25% 12.5 G/50 ML VIAL FOR OR. ONE (08:53)
--- NOTE | 2017-02-16 08:58 | RAD ---
EXAM: Brain MRI with contrast. HISTORY: Preoperative evaluation. Right temporal lobe lesion. TECHNIQUE: Axial T1 postcontrast images of the brain were obtained following the administration of 10 cc Gadavist intravenous contrast. COMPARISON: 01/01/2017 FINDINGS: There is a heterogeneously predominantly peripherally enhancing lesion within the right temporal lobe measuring 2.5 cm transversely by 2.2 cm anteroposteriorly. There is no enhancement within the central aspect of this lesion, possibly due to a component of necrosis. There is extensive surrounding edema resulting in effacement of the overlying sulci. No additional enhancing lesion is seen. There is no mass effect or midline shift. There is no hydrocephalus. There are extensive areas of signal change throughout the cerebral white matter, a nonspecific finding which may be due to chronic small vessel disease. The orbits, paranasal sinuses and mastoid air cells are unremarkable. There are prominent dilated perivascular spaces within the basal ganglia. IMPRESSION: 1. 2.5 cm heterogeneous predominantly peripheral enhancing lesion within the right temporal lobe with extensive surrounding edema. This is slightly increased in size compared to prior studies, allowing for differences in technique. The interval progression of this lesion favors neoplasm rather than infectious etiologies or the sequela of infarction. 2. Extensive signal change throughout the cerebral white matter, a nonspecific finding which is likely due to chronic small vessel disease given the patient's age. Electronically signed by: Kassidy Bello MD (02/16/2017 8:55 AM)
[2017-02-16] MEDS ORDERED: ePHEDrine PF IN SALINE 50 MG/5 ML DISP.SYRIN IV ONE (09:57)
[2017-02-16] MEDS ORDERED: SURGICEL HEMOSTAT 4X8 EACH. ONE (10:27)
[2017-02-16] MEDS ORDERED: ONDANSETRON PF 4 MG/2 ML VIAL. ONE (11:20)
[2017-02-16] MEDS ORDERED: PROPOFOL 20 ML IV ONE (11:20)
[2017-02-16] MEDS ORDERED: DEXAMETHASONE SOD PHOS 20 MG/5 ML VIAL. ONE (11:20)
[2017-02-16] MEDS ORDERED: SEVOFLURANE > 120 MINUTES. IH ONE (11:20)
[2017-02-16] MEDS ORDERED: PROPOFOL 50 ML IV ONE ×2 (11:20)
[2017-02-16] MEDS ORDERED: LIDOCAINE 2% PF Vial for OR 5 ML VIAL. ONE (11:20)
[2017-02-16] MEDS ORDERED: NEOSTIGMINE METHYLSULFATE 5 MG/5 ML SYRINGE. ONE (12:50)
[2017-02-16] MEDS ORDERED: GLYCOPYRROLATE 1 MG/5 ML VIAL. ONE (12:50)
--- NOTE | 2017-02-16 13:25 | PDOC ---
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
[2017-02-16] MEDS ORDERED: DEXTROSE 50% 25 GM / 50ML DISP.SYRIN. IV PRN (13:30)
[2017-02-16] MEDS ORDERED: diphenhydrAMINE HCL 25 MG CAPSULE PO PRN (13:30)
[2017-02-16] MEDS ORDERED: oxyCODONE/APAP 5/325 1 TAB TABLET PO PRN (13:30)
[2017-02-16] MEDS ORDERED: ONDANSETRON PF 4 MG/2 ML VIAL. IV PRN (13:30)
[2017-02-16] MEDS ORDERED: 0.9 % SODIUM CHLORIDE 10 ML DISP.SYRIN. IV PRN (13:30)
[2017-02-16] MEDS ORDERED: LABETALOL 20 MG/4 ML DISP.SYRIN. IV PRN (13:30)
[2017-02-16] MEDS ORDERED: MAGNESIUM HYDROXIDE 2,400 MG/30 ML ORAL.SUSP. PO PRN (13:30)
[2017-02-16] MEDS ORDERED: cloNIDine HCL 0.1 MG TABLET PO PRN (13:30)
[2017-02-16] MEDS ORDERED: MAG HYDROX/ALUMINUM HYD/SIMETH 30 ML ORAL.SUSP PO PRN (13:30)
[2017-02-16] MEDS ORDERED: CALCIUM CARBONATE 500 MG TAB.CHEW PO PRN (13:30)
[2017-02-16] MEDS ORDERED: diphenhydrAMINE 50 MG/ML VIAL IV PRN (13:30)
[2017-02-16] MEDS ORDERED: DEXAMETHASONE SOD PHOS 4 MG/ML VIAL IV SCH (14:00)
[2017-02-16] MEDS ORDERED: fentaNYL PF VIAL 100 MCG/2 ML VIAL IM ONE (14:00)
[2017-02-16 14:46] LABS: ALBUMIN 2.8 g/dL (3.4-5.0); CALCIUM 7.9 mg/dL (8.5-10.1); GFR 72.6; PHOSPHORUS 4.3 mg/dL (2.6-4.7); POTASSIUM 4.2 mmol/L (3.5-5.1); TOTAL BILIRUBIN 0.4 mg/dL (0.2-1.0); TOTAL PROTEIN 5.7 g/dL (6.4-8.2)
[2017-02-16] MEDS: ALBUTEROL SULFATE 2.5 MG/3 ML NEBU. NEB SCH ×2 (15:31→19:25)
[2017-02-16] MEDS: METOPROLOL TART IMMED RELEASE 50 MG TABLET. PO SCH ×2 (16:37→21:15)
[2017-02-16] MEDS: CITALOPRAM 20 MG TABLET. PO SCH (16:37)
[2017-02-16] MEDS: INSULIN ASPART 300 UNITS/3 ML INSULN.PEN SQ SCH (17:00)
[2017-02-16] MEDS: hydrALAZINE 20 MG/ML VIAL. IVP PRN (17:24)
--- NOTE | 2017-02-16 17:27 | PDOC ---
GENERAL General: see dictated consult. Problems: VITAL SIGNS Vital Signs: Vital Signs Date Time Temp Pulse Resp B/P (MAP) Pulse Ox O2 Delivery O2 Flow Rate FiO2 02/16/17 17:24 167/77 02/16/17 16:37 75 02/16/17 15:34 98 Room Air 02/16/17 13:56 97.0 18 97.0 02/16/17 13:11 10 ALLERGIES Allergies: Allergies Coded Allergies Type Severity Reaction Last Updated Verified No Known Drug Allergies 02/16/17 No MEDS Medications: Current Medications Medications (Trade) Dose Ordered Sig/Pankaj Start Time Stop Time Status Last Admin Dose Admin Al Hydroxide/Mg Hydroxide (Mylanta Plus Xs) 30 ml PRN Q3HRS PRN 02/16/17 13:30 Albuterol Sulfate (Ventolin Neb Soln) 2.5 mg RTQID 02/16/17 16:00 02/16/17 15:31 2.5 MG Bacitracin 14 tiffanie STK-MED ONCE 02/16/17 07:10 02/16/17 07:11 DC Bacitracin 81361 unit/Sodium Chloride 1,000 ml @ 1,000 mls/hr 1X PERIOP ONCE 02/16/17 06:00 02/16/17 06:59 DC 02/16/17 10:03 Budesonide (Pulmicort) 0.5 mg RTBID 02/16/17 20:00 Calcium Carbonate/ Glycine (Tums) 500 mg PRN Q3HRS PRN 02/16/17 13:30 Cefazolin Sodium/ Dextrose 50 ml @ 100 mls/hr 1X PRN PRN 02/16/17 08:00 02/16/17 09:36 100 MLS/HR Cellulose 1 each STK-MED ONCE 02/16/17 10:27 02/16/17 10:28 DC 02/16/17 11:47 1 EACH Citalopram Hydrobromide (CeleXA) 20 mg DAILY 02/16/17 14:30 02/16/17 16:37 20 MG Clonidine HCl (Catapres) 0.1 mg PRN Q1HR PRN 02/16/17 13:30 Dexamethasone (Decadron) 4 mg Q6HRS 02/17/17 00:00 Dexamethasone Sodium Phosphate (Decadron) 4 mg Q6HRS 02/16/17 14:00 02/16/17 17:02 DC 02/16/17 16:36 4 MG Dextrose (Dextrose 50%-Water Syringe) 12.5 gm PRN Q15MIN PRN 02/16/17 13:30 Diphenhydramine HCl (Benadryl) 25 mg PRN Q6HRS PRN 02/16/17 13:30 Docusate Sodium (Colace) 100 mg BID 02/16/17 21:00 Ephedrine Sulfate 50 mg STK-MED ONCE 02/16/17 09:57 02/16/17 09:58 DC Famotidine (Pepcid) 20 mg BID 02/16/17 21:00 Fentanyl Citrate (Fentanyl 2ml Vial) 50 mcg PRN Q1HR PRN 02/16/17 13:30 02/16/17 16:35 50 MCG Gadobutrol (Gadavist) 10 mmol 1X ONCE 02/16/17 07:30 02/16/17 07:31 DC 02/16/17 07:30 10 MMOL Gelatin (Gelfoam Size 100) 1 each STK-MED ONCE 02/16/17 07:10 02/16/17 07:11 DC 02/16/17 10:03 1 EACH Gelatin (Gelfoam Powder) 1 gm STK-MED ONCE 02/16/17 10:41 02/16/17 10:42 DC 02/16/17 10:43 1 GM Glycopyrrolate (Robinul) 1 mg STK-MED ONCE 02/16/17 12:50 02/16/17 12:51 DC Hydralazine HCl (Apresoline) 5 mg PRN Q6HRS PRN 02/16/17 13:30 02/16/17 17:24 5 MG Hydromorphone HCl (Dilaudid) 0.5 mg PRN Q10MIN PRN 02/16/17 07:00 02/16/17 18:00 Insulin Aspart (NovoLOG) 0-7 UNITS TIDWMEALS 02/16/17 17:00 Labetalol HCl (Normodyne) 5 mg PRN Q15MIN PRN 02/16/17 13:30 Lidocaine HCl (Lidocaine Pf 2% Vial) 5 ml STK-MED ONCE 02/16/17 11:20 02/16/17 11:21 DC Lidocaine/ Epinephrine (Xylocaine 1%-Epi 1:100,000) 20 ml STK-MED ONCE 02/16/17 07:10 02/16/17 07:11 DC 02/16/17 10:03 20 ML Lorazepam (Ativan) 1 mg 1X ONCE 02/16/17 14:00 02/16/17 14:01 DC Magnesium Hydroxide (Milk Of Magnesia) 2,400 mg PRN Q12HR PRN 02/16/17 13:30 Mannitol (Mannitol) 12.5 g STK-MED ONCE 02/16/17 08:53 02/16/17 08:54 DC Metoprolol Tartrate (Lopressor) 50 mg BID 02/16/17 14:30 02/16/17 16:37 50 MG Midazolam HCl (Versed) 2 mg STK-MED ONCE 02/16/17 08:19 02/16/17 08:20 DC Morphine Sulfate 1 mg PRN Q10MIN PRN 02/16/17 07:00 02/16/17 18:00 Neostigmine Methylsulfate 5 mg STK-MED ONCE 02/16/17 12:50 02/16/17 12:51 DC Nicardipine HCl 50 mg/Sodium Chloride 270 ml @ 27 mls/hr TITRATE PRN 02/16/17 13:30 Non-Formulary Medication 1 puff DAILY 02/17/17 09:00 UNV Ondansetron HCl (Zofran) 4 mg PRN Q6HRS PRN 02/16/17 13:30 Oxycodone/ Acetaminophen (Percocet 5/325) 2 tab PRN Q4HRS PRN 02/16/17 13:30 Prochlorperazine Edisylate (Compazine) 5 mg PACU PRN PRN 02/16/17 07:00 02/16/17 18:00 Propofol 20 ml @ As Directed STK-MED ONCE 02/16/17 11:20 02/16/17 11:21 DC Remifentanil HCl (Ultiva) 2 mg STK-MED ONCE 02/16/17 11:38 02/16/17 11:39 DC Ringer's Solution 1,000 ml @ 30 mls/hr Q24H 02/16/17 07:00 02/16/17 18:59 02/16/17 07:27 30 MLS/HR Rocuronium [place] (Zemuron) 50 mg STK-MED ONCE 02/16/17 10:05 02/16/17 10:06 DC Senna/Docusate Sodium (Senna Plus) 1 tab BID 02/16/17 21:00 Sevoflurane (Ultane) 90 ml STK-MED ONCE 02/16/17 11:20 02/16/17 11:21 DC Sodium Chloride (Normal Saline Flush) 3 ml QSHIFT PRN 02/16/17 13:30 Thrombin 20,000 unit STK-MED ONCE 02/16/17 10:41 02/16/17 10:42 DC 02/16/17 10:43 20,000 UNIT LAB Lab: Laboratory Tests Test 02/16/17 14:08 Sodium Level 139 mmol/L (136-145) Potassium Level 4.2 mmol/L (3.5-5.1) Chloride Level 105 mmol/L (98-107) Carbon Dioxide Level 27 mmol/L (21-32) Anion Gap 7 (6-14) Blood Urea Nitrogen 23 mg/dL (8-26) Creatinine 1.0 mg/dL (0.7-1.3) Estimated GFR (Cockcroft-Gault) 72.6 BUN/Creatinine Ratio 23 (6-20) Glucose Level 113 mg/dL (70-99) Calcium Level 7.9 mg/dL (8.5-10.1) Phosphorus Level 4.3 mg/dL (2.6-4.7) Magnesium Level 2.0 mg/dL (1.8-2.4) Total Bilirubin 0.4 mg/dL (0.2-1.0) Aspartate Amino Transf (AST/SGOT) 23 U/L (15-37) Alanine Aminotransferase (ALT/SGPT) 51 U/L (16-63) Alkaline Phosphatase 44 U/L (46-116) Total Protein 5.7 g/dL (6.4-8.2) Albumin 2.8 g/dL (3.4-5.0) Albumin/Globulin Ratio 1.0 (1.0-1.7) ZAY MILES MD February 16, 2017 17:27
[2017-02-16] MEDS: oxyCODONE/APAP 5/325 1 TAB TABLET PO PRN (18:47)
[2017-02-16] MEDS: BUDESONIDE 0.5 MG/2 ML NEBU. NEB SCH (19:28)
[2017-02-16] MEDS: DOCUSATE SODIUM 100 MG CAPSULE. PO SCH (21:00)
[2017-02-16] MEDS: SENNOSIDES/DOCUSATE 8.6/50MG TABLET. PO SCH (21:00)
[2017-02-16] MEDS: FAMOTIDINE 20 MG TABLET. PO SCH (21:15)
[2017-02-17] VITALS (16 sets, daily range): BP systolic 103–156; BP diastolic 60–85
--- NOTE | 2017-02-17 01:05 | CONS ---
DATE OF CONSULTATION: 02/16/2017 CHIEF COMPLAINT AND HISTORY OF PRESENT ILLNESS: This 77-year-old white male is well known to me from followup in the office for many years. 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 Over time, it has increased slightly in size. He is admitted at this point in time for removal/biopsy of the same. He has been on Decadron over that time because of edema of the brain with some initial dizziness, not acting quite right. He did stop this time sometime in the interim and began having symptoms relatively quickly and was restarted. Was ____ direction of any doctor that he stopped his prescription, just ran out and he did not have a refill. PAST MEDICAL HISTORY: Remarkable for asthma, GERD, history of colon cancer, BPH, osteoarthritis of his right knee, and depression. PAST SURGICAL HISTORY: Remarkable for a partial colectomy and vasectomy. MEDICATIONS: Brought with the patient, listed on the computer and have been addressed. ALLERGIES: He has no known drug allergies. SOCIAL HISTORY: He is , nonsmoker, nondrinker, does not use drugs. FAMILY HISTORY: Noncontributory. REVIEW OF SYSTEMS: As mentioned above. PHYSICAL EXAMINATION: GENERAL: He is a well-developed and well-nourished, pleasant white male in no acute distress preoperatively. VITAL SIGNS: Stable. He is afebrile. HEAD, EYES, EARS, NOSE AND THROAT: Remarkable for the beginning of some quesada facies from the steroids. NECK: Supple without adenopathy or thyromegaly. CHEST: Clear to auscultation and percussion. HEART: Regular rate and rhythm without S3, S4 or murmur. ABDOMEN: Soft, nontender, without hepatosplenomegaly or mass. EXTREMITIES: Without cyanosis, clubbing or edema. NEUROLOGIC: Intact. IMPRESSION: Brain mass as noted above. PLAN: The patient has been admitted. Dr. Rawls will take him to surgery. We will follow postoperatively for medical issues as they arise. ZAY MILES MD DR: ARTHUR/layla JOB#: [id number] / [id number]
[2017-02-17] MEDS: DEXAMETHASONE 4 MG TABLET PO SCH ×4 (01:32→17:53)
[2017-02-17] MEDS: hydrALAZINE 20 MG/ML VIAL. IVP PRN (01:33)
[2017-02-17] MEDS: oxyCODONE/APAP 5/325 1 TAB TABLET PO PRN ×3 (01:37→15:28)
[2017-02-17] MEDS: BUDESONIDE 0.5 MG/2 ML NEBU. NEB SCH (08:00)
[2017-02-17] MEDS: ALBUTEROL SULFATE 2.5 MG/3 ML NEBU. NEB SCH (08:00)
[2017-02-17] MEDS: INSULIN ASPART 300 UNITS/3 ML INSULN.PEN SQ SCH ×3 (08:00→16:32)
[2017-02-17] MEDS ORDERED: NON FORMULARY ITEM (Fluticasone/Vilanterol (Breo Ellipta 100-25 Mcg Inh) 1 PUFF) IH SCH (09:00)
[2017-02-17] MEDS ORDERED: NON FORMULARY ITEM (Fluticasone/Vilanterol (Breo Ellipta 200-25 Mcg INH) 1 PUFF) IH SCH (09:00)
[2017-02-17] MEDS ORDERED: ALBUTEROL SULFATE 2.5 MG/3 ML NEBU. NEB PRN (09:00)
[2017-02-17] MEDS: FAMOTIDINE 20 MG TABLET. PO SCH ×2 (09:04→21:36)
[2017-02-17] MEDS: METOPROLOL TART IMMED RELEASE 50 MG TABLET. PO SCH ×2 (09:04→21:00)
[2017-02-17] MEDS: SENNOSIDES/DOCUSATE 8.6/50MG TABLET. PO SCH ×2 (09:05→21:36)
[2017-02-17] MEDS: DOCUSATE SODIUM 100 MG CAPSULE. PO SCH ×2 (09:05→21:36)
[2017-02-17] MEDS: CITALOPRAM 20 MG TABLET. PO SCH (09:05)
[2017-02-17] MEDS ORDERED: GADOBUTROL 10 MMOL/10 ML VIAL IV ONE (10:00)
--- NOTE | 2017-02-17 10:42 | RAD ---
EXAM: Brain MRI without and with contrast. HISTORY: Brain mass resection. TECHNIQUE: Multiplanar, multisequence magnetic resonance imaging of the brain was performed prior to and following the administration of 10 cc gadavist intravenous contrast. COMPARISON: 01/01/2017 FINDINGS: There are findings consistent with interval frontotemporal craniotomy and temporal lobe lesion resection. There is an approximately 3.5 cm resection cavity within the right middle cranial fossa with extensive surrounding signal change likely due to edema. There is T1 hyperintensity along the posterior aspect of the resection cavity, limiting evaluation for postoperative enhancement. There is extensive susceptibility effect due to hemorrhage within the resection bed. There is a thin extra-axial fluid collection underlying the craniotomy site, likely due to extra-axial blood products. There are scattered focal and confluent areas of signal change throughout the cerebral white matter and jered, a nonspecific finding likely due to chronic small vessel disease. There is no midline shift. The orbits are unremarkable. There is minimal inferior left maxillary sinus mucosal thickening. The mastoid air cells are clear. There are normal flow voids within the cerebral vessels. There is a dilated perivascular space or chronic lacunar infarct within the right thalamus. IMPRESSION: 1. Findings consistent with interval right frontotemporal craniotomy and temporal lobe lesion resection. There is a resection cavity with hemorrhage and there is surrounding edema extending throughout the residual right temporal lobe. This is due to resolving postoperative changes or residual peritumoral edema. Correlate with pathology findings. Short-term follow-up is indicated. 2. Small extra-axial fluid collection along the craniotomy site, likely due to extra-axial blood products. 3. Extensive signal change throughout the cerebral white matter and jered, likely due to chronic small vessel disease. Electronically signed by: Kassidy Bello MD (02/17/2017 10:40 AM)
--- NOTE | 2017-02-17 11:00 | PDOC ---
SUBJECTIVE Subjective Denies acute complaints other than some right jaw pain with chewing. Has been OOB without significant difficulty. OBJECTIVE Objective MRI brain 02/17/17 with expected post-op changes with interval resection of right temporal lesion Vital Signs Vital Signs Date Time Temp Pulse Resp B/P (MAP) Pulse Ox O2 Delivery O2 Flow Rate FiO2 02/17/17 09:04 137/56 02/17/17 08:00 Room Air 02/17/17 06:19 57 143/79 02/17/17 06:00 57 27 128/79 (95) 95 Room Air 02/17/17 05:00 58 17 119/81 (94) 94 Room Air 02/17/17 04:00 97.5 58 18 154/78 (103) 97 Room Air 97.5 02/17/17 03:59 58 154/78 (103) 02/17/17 03:58 Room Air 02/17/17 03:00 57 12 103/70 (81) 95 Room Air 02/17/17 02:37 13 95 Room Air 02/17/17 02:00 58 13 142/67 (92) 94 Room Air 02/17/17 01:37 20 95 Room Air 02/17/17 01:33 58 151/76 02/17/17 01:00 56 13 156/75 (102) 95 Room Air 02/17/17 00:00 97.4 57 13 156/73 (100) 97 Room Air 97.4 02/16/17 23:59 57 156/73 (100) 02/16/17 23:59 Room Air 02/16/17 23:00 62 16 142/68 (92) 93 Room Air 02/16/17 22:00 66 18 140/66 (90) 94 Room Air 02/16/17 21:15 72 146/71 02/16/17 21:00 70 16 148/72 (97) 93 Room Air 02/16/17 20:00 97.4 75 29 126/61 (82) 96 Room Air 97.4 02/16/17 20:00 75 126/61 (82) 02/16/17 20:00 Room Air 02/16/17 19:47 97.0 64 175/77 (109) 94 Simple Mask 5.0 97.0 02/16/17 19:28 Room Air 02/16/17 19:25 96 Room Air 02/16/17 19:00 80 24 110/67 (81) 94 Room Air 02/16/17 18:00 64 19 144/68 (93) 94 Room Air 02/16/17 17:24 167/77 02/16/17 17:00 82 25 176/82 (113) 95 Room Air 02/16/17 16:37 75 164/95 02/16/17 16:00 97.0 84 20 138/66 (90) 94 Room Air 97.0 02/16/17 16:00 Mask 5.0 02/16/17 15:34 98 Room Air 02/16/17 15:00 70 19 178/76 (110) 94 Room Air 02/16/17 14:00 73 15 160/86 (110) 95 Room Air 02/16/17 13:56 97.0 75 18 164/95 95 Room Air 97.0 02/16/17 13:41 80 20 131/96 96 Room Air 02/16/17 13:30 Mask 5.0 02/16/17 13:26 75 20 160/103 92 Room Air 02/16/17 13:11 97.4 78 20 142/78 96 Simple Mask 10 97.4 I & O Intake and Output 02/17/17 07:00 Intake Total 3190 ml Output Total 4435 ml Balance -1245 ml Intake Oral 2740 ml IV Total 450 ml Output Urine Total 4435 ml PHYSICAL EXAM Physical Exam AAOx4, NAD, PERRL, EOMI, RESENDIZ 5/5, sensation intact LT ASSESSMENT/PLAN Assessment/Plan POD 1 craniotomy for brain lesion -neurologically doing well -frozen suggested glioma, final path pending -downgrade from ICU -continue to increase activities with standard post-op restrictions (no strenuous activity, no lifting over 10lbs) -PT/OT -PCP/rad onc/med onc consulted -appreciate assist from all consultants -anticipate d/c soon if continues to do well Problems: COMMENT Lab Laboratory Tests Test 02/16/17 14:08 02/16/17 17:29 Sodium Level 139 mmol/L (136-145) Potassium Level 4.2 mmol/L (3.5-5.1) Chloride Level 105 mmol/L (98-107) Carbon Dioxide Level 27 mmol/L (21-32) Anion Gap 7 (6-14) Blood Urea Nitrogen 23 mg/dL (8-26) Creatinine 1.0 mg/dL (0.7-1.3) Estimated GFR (Cockcroft-Gault) 72.6 BUN/Creatinine Ratio 23 (6-20) Glucose Level 113 mg/dL (70-99) Calcium Level 7.9 mg/dL (8.5-10.1) Phosphorus Level 4.3 mg/dL (2.6-4.7) Magnesium Level 2.0 mg/dL (1.8-2.4) Total Bilirubin 0.4 mg/dL (0.2-1.0) Aspartate Amino Transf (AST/SGOT) 23 U/L (15-37) Alanine Aminotransferase (ALT/SGPT) 51 U/L (16-63) Alkaline Phosphatase 44 U/L (46-116) Total Protein 5.7 g/dL (6.4-8.2) Albumin 2.8 g/dL (3.4-5.0) Albumin/Globulin Ratio 1.0 (1.0-1.7) Glucose (Fingerstick) 120 mg/dL (70-99) IRENE GONCALVES MD February 17, 2017 11:00
--- NOTE | 2017-02-17 12:06 | PDOC ---
PROGRESS NOTES Objective Objective Patient, Mateusz Garrido was seen in consultation today. This is 77 years old gentleman with recently diagnosed right temporal mass. Surprisingly, he had not much symptoms of headaches, dizziness, or any neurological deficits. MRI brain did show rt. temporal mass with edema, which was initially noted in November, and was kept on close followup. On 02/16/17 he underwent right temporal craniotomy and resection of the tumor. Pathology is awaited. I did talk with the patient and his family, that depending on the final pathology, further treatment decision will be made. This patient has been on dexamethasone for some time now, with obvious quesada face and edema of the lower extremity, other than that patient is awake and doing well. Plan: wait for final pathology report, for further management. Vital Signs Date Time Temp Pulse Resp B/P (MAP) Pulse Ox O2 Delivery O2 Flow Rate FiO2 02/17/17 09:04 137/56 02/17/17 08:00 Room Air 02/17/17 06:19 57 02/17/17 06:00 27 95 02/17/17 04:00 97.5 97.5 02/16/17 19:47 5.0 Intake and Output 02/17/17 07:00 Intake Total 3190 ml Output Total 4435 ml Balance -1245 ml Intake Oral 2740 ml IV Total 450 ml Output Urine Total 4435 ml Comment Review of Relevant I have reviewed the following items abran (where applicable) has been applied. Labs Laboratory Tests Test 02/16/17 14:08 02/16/17 17:29 Sodium Level 139 mmol/L (136-145) Potassium Level 4.2 mmol/L (3.5-5.1) Chloride Level 105 mmol/L (98-107) Carbon Dioxide Level 27 mmol/L (21-32) Anion Gap 7 (6-14) Blood Urea Nitrogen 23 mg/dL (8-26) Creatinine 1.0 mg/dL (0.7-1.3) Estimated GFR (Cockcroft-Gault) 72.6 BUN/Creatinine Ratio 23 (6-20) Glucose Level 113 mg/dL (70-99) Calcium Level 7.9 mg/dL (8.5-10.1) Phosphorus Level 4.3 mg/dL (2.6-4.7) Magnesium Level 2.0 mg/dL (1.8-2.4) Total Bilirubin 0.4 mg/dL (0.2-1.0) Aspartate Amino Transf (AST/SGOT) 23 U/L (15-37) Alanine Aminotransferase (ALT/SGPT) 51 U/L (16-63) Alkaline Phosphatase 44 U/L (46-116) Total Protein 5.7 g/dL (6.4-8.2) Albumin 2.8 g/dL (3.4-5.0) Albumin/Globulin Ratio 1.0 (1.0-1.7) Glucose (Fingerstick) 120 mg/dL (70-99) Laboratory Tests Test 02/16/17 14:08 02/16/17 17:29 Sodium Level 139 mmol/L (136-145) Potassium Level 4.2 mmol/L (3.5-5.1) Chloride Level 105 mmol/L (98-107) Carbon Dioxide Level 27 mmol/L (21-32) Anion Gap 7 (6-14) Blood Urea Nitrogen 23 mg/dL (8-26) Creatinine 1.0 mg/dL (0.7-1.3) Estimated GFR (Cockcroft-Gault) 72.6 BUN/Creatinine Ratio 23 (6-20) Glucose Level 113 mg/dL (70-99) Calcium Level 7.9 mg/dL (8.5-10.1) Phosphorus Level 4.3 mg/dL (2.6-4.7) Magnesium Level 2.0 mg/dL (1.8-2.4) Total Bilirubin 0.4 mg/dL (0.2-1.0) Aspartate Amino Transf (AST/SGOT) 23 U/L (15-37) Alanine Aminotransferase (ALT/SGPT) 51 U/L (16-63) Alkaline Phosphatase 44 U/L (46-116) Total Protein 5.7 g/dL (6.4-8.2) Albumin 2.8 g/dL (3.4-5.0) Albumin/Globulin Ratio 1.0 (1.0-1.7) Glucose (Fingerstick) 120 mg/dL (70-99) Medications Current Medications Bacitracin 25815 unit/Sodium Chloride 1,000 ml @ 1,000 mls/hr 1X PERIOP ONCE IRR Last administered on 02/16/17t 10:03; Start 02/16/17 at 06:00; Stop at 06:59; Status DC Fentanyl Citrate (Fentanyl 2ml Vial) 25 mcg PRN Q5MIN PRN IV MILD PAIN; Start 02/16/17 at 07:00; Stop 02/16/17 at 18:00; Status DC Fentanyl Citrate (Fentanyl 2ml Vial) 50 mcg PRN Q5MIN PRN IV MODERATE PAIN; Start 02/16/17 at 07:00; Stop 02/16/17 at 18:00; Status DC Morphine Sulfate 1 mg PRN Q10MIN PRN IV SEVERE PAIN; Start 02/16/17 at 07:00; Stop 02/16/17 at 18:00; Status DC Ringer's Solution 1,000 ml @ 30 mls/hr Q24H IV Last administered on 02/16/17 07:27; Start 02/16/17 at 07:00; Stop 02/16/17 at 18:59; Status DC Lidocaine HCl 2 ml PRN 1X PRN ID PRIOR TO IV START; Start 02/16/17 at 07:00; Stop 02/16/17 at 18:00; Status DC Hydromorphone HCl (Dilaudid) 0.5 mg PRN Q10MIN PRN IV SEV PAIN, Second choice; Start 02/16/17 at 07:00; Stop 02/16/17 at 18:00; Status DC Prochlorperazine Edisylate (Compazine) 5 mg PACU PRN PRN IV NAUSEA, MRX1; Start 02/16/17 at 07:00; Stop 02/16/17 at 18:00; Status DC Cefazolin Sodium/ Dextrose 50 ml @ 100 mls/hr 1X PRN PRN IV PRIOR TO SURGERY Last administered on 02/16/17 09:36; Start 02/16/17 at 08:00; Stop 02/17/17 at 10:37; Status DC Lidocaine/ Epinephrine (Xylocaine 1%-Epi 1:100,000) 20 ml STK-MED ONCE .ROUTE Last administered on 02/16/17 10:03; Start 02/16/17 at 07:10; Stop 02/16/17 at 07:11; Status DC Bacitracin 14 tiffanie STK-MED ONCE TP ; Start 02/16/17 at 07:10; Stop 02/16/17 at 07 :11; Status DC Gelatin (Gelfoam Powder) 1 gm STK-MED ONCE .ROUTE Last administered on 10:03; Start 02/16/17 at 07:10; Stop 02/16/17 at 07:11; Status DC Gelatin (Gelfoam Size 100) 1 each STK-MED ONCE .ROUTE Last administered on 10:03; Start 02/16/17 at 07:10; Stop 02/16/17 at 07:11; Status DC Thrombin 20,000 unit STK-MED ONCE TP Last administered on 02/16/17 10:03; Start 02/16/17 at 07:10; Stop 02/16/17 at 07:11; Status DC Gadobutrol (Gadavist) 10 mmol 1X ONCE IV Last administered on 02/16/17 07:30 ; Start 02/16/17 at 07:30; Stop 02/16/17 at 07:31; Status DC Midazolam HCl (Versed) 2 mg STK-MED ONCE .ROUTE ; Start 02/16/17 at 08:19; Stop 02/16/17 at 08:20; Status DC Remifentanil HCl (Ultiva) 2 mg STK-MED ONCE IV ; Start 02/16/17 at 08:19; Stop 02/16/17 at 08:20; Status DC Fentanyl Citrate (Fentanyl 2ml Vial) 100 mcg STK-MED ONCE .ROUTE ; Start at 08:20; Stop 02/16/17 at 08:21; Status DC Rocuronium [place] (Zemuron) 50 mg STK-MED ONCE .ROUTE ; Start 02/16/17 at 08:20 ; Stop 02/16/17 at 08:21; Status DC Mannitol (Mannitol) 12.5 g STK-MED ONCE .ROUTE ; Start 02/16/17 at 08:53; Stop 02/16/17 at 08:54; Status DC Ephedrine Sulfate 50 mg STK-MED ONCE IV ; Start 02/16/17 at 09:57; Stop at 09:58; Status DC Rocuronium [place] (Zemuron) 50 mg STK-MED ONCE .ROUTE ; Start 02/16/17 at 10:05 ; Stop 02/16/17 at 10:06; Status DC Cellulose 1 each STK-MED ONCE .ROUTE Last administered on 02/16/17 11:47; Start 02/16/17 at 10:27; Stop 02/16/17 at 10:28; Status DC Gelatin (Gelfoam Powder) 1 gm STK-MED ONCE .ROUTE Last administered on 10:43; Start 02/16/17 at 10:41; Stop 02/16/17 at 10:42; Status DC Thrombin 20,000 unit STK-MED ONCE TP Last administered on 02/16/17 10:43; Start 02/16/17 at 10:41; Stop 02/16/17 at 10:42; Status DC Propofol 50 ml @ As Directed STK-MED ONCE IV ; Start 02/16/17 at 11:20; Stop at 11:21; Status DC Propofol 50 ml @ As Directed STK-MED ONCE IV ; Start 02/16/17 at 11:20; Stop at 11:21; Status DC Dexamethasone Sodium Phosphate (Decadron) 20 mg STK-MED ONCE .ROUTE ; Start at 11:20; Stop 02/16/17 at 11:21; Status DC Propofol 20 ml @ As Directed STK-MED ONCE IV ; Start 02/16/17 at 11:20; Stop at 11:21; Status DC Lidocaine HCl (Lidocaine Pf 2% Vial) 5 ml STK-MED ONCE .ROUTE ; Start 02/16/17 at 11:20; Stop 02/16/17 at 11:21; Status DC Ondansetron HCl (Zofran) 4 mg STK-MED ONCE .ROUTE ; Start 02/16/17 at 11:20; Stop 02/16/17 at 11:21; Status DC Sevoflurane (Ultane) 90 ml STK-MED ONCE IH ; Start 02/16/17 at 11:20; Stop 02/16 at 11:21; Status DC Remifentanil HCl (Ultiva) 2 mg STK-MED ONCE IV ; Start 02/16/17 at 11:38; Stop 02/16/17 at 11:39; Status DC Glycopyrrolate (Robinul) 1 mg STK-MED ONCE .ROUTE ; Start 02/16/17 at 12:50; Stop 02/16/17 at 12:51; Status DC Neostigmine Methylsulfate 5 mg STK-MED ONCE .ROUTE ; Start 02/16/17 at 12:50; Stop 02/16/17 at 12:51; Status DC Fentanyl Citrate (Fentanyl 2ml Vial) 50 mcg 1X ONCE IM ; Start 02/16/17 at 14: 00; Stop 02/16/17 at 14:01; Status DC Lorazepam (Ativan) 1 mg 1X ONCE IV ; Start 02/16/17 at 14:00; Stop 02/16/17 at 14:01; Status DC Labetalol HCl (Normodyne) 5 mg PRN Q15MIN PRN IV HYPERTENSION, SEE COMMENTS; Start 02/16/17 at 13:30 Nicardipine HCl 50 mg/Sodium Chloride 270 ml @ 27 mls/hr TITRATE PRN IV PER PROTOCOL; Start 02/16/17 at 13:30 Hydralazine HCl (Apresoline) 5 mg PRN Q6HRS PRN IVP TO KEEP SBP<140mmHg Last administered on 02/17/17 01:33; Start 02/16/17 at 13:30 Clonidine HCl (Catapres) 0.1 mg PRN Q1HR PRN PO HYPERTENSION, SEE COMMENTS Last administered on 02/17/17 06:19; Start 02/16/17 at 13:30 Al Hydroxide/Mg Hydroxide (Mylanta Plus Xs) 30 ml PRN Q3HRS PRN PO HEARTBURN / GAS; Start 02/16/17 at 13:30 Calcium Carbonate/ Glycine (Tums) 500 mg PRN Q3HRS PRN PO INDIGESTION; Start at 13:30 Diphenhydramine HCl (Benadryl) 25 mg PRN Q6HRS PRN PO ITCHING; Start 02/16/17 at 13:30 Diphenhydramine HCl (Benadryl) 25 mg PRN Q6HRS PRN IV ITCHING; Start 02/16/17 at 13:30 Famotidine (Pepcid) 20 mg BID PO Last administered on 02/17/17 09:04; Start at 21:00 Sodium Chloride (Normal Saline Flush) 3 ml QSHIFT PRN IV AFTER MEDS AND BLOOD DRAWS; Start 02/16/17 at 13:30 Insulin Aspart (NovoLOG) 0-7 UNITS TIDWMEALS SQ ; Start 02/16/17 at 17:00 Dextrose (Dextrose 50%-Water Syringe) 12.5 gm PRN Q15MIN PRN IV SEE COMMENTS; Start 02/16/17 at 13:30 Oxycodone/ Acetaminophen (Percocet 5/325) 1 tab PRN Q4HRS PRN PO MILD PAIN, 1ST CHOICE; Start 02/16/17 at 13:30 Oxycodone/ Acetaminophen (Percocet 5/325) 2 tab PRN Q4HRS PRN PO MODERATE PAIN , SEVERE PAIN Last administered on 02/17/17 09:09; Start 02/16/17 at 13:30 Senna/Docusate Sodium (Senna Plus) 1 tab BID PO Last administered on 02/17/17 09:05; Start 02/16/17 at 21:00 Docusate Sodium (Colace) 100 mg BID PO Last administered on 02/17/17 09:05; Start 02/16/17 at 21:00 Magnesium Hydroxide (Milk Of Magnesia) 2,400 mg PRN Q12HR PRN PO CONSTIPATION; Start 02/16/17 at 13:30 Ondansetron HCl (Zofran) 4 mg PRN Q6HRS PRN IV NAUESA, 1ST CHOICE; Start at 13:30 Dexamethasone Sodium Phosphate (Decadron) 4 mg Q6HRS IV Last administered on 16:36; Start 02/16/17 at 14:00; Stop 02/16/17 at 17:02; Status DC Fentanyl Citrate (Fentanyl 2ml Vial) 50 mcg PRN Q1HR PRN IV SEVERE PAIN Last administered on 02/16/17 16:35; Start 02/16/17 at 13:30 Citalopram Hydrobromide (CeleXA) 20 mg DAILY PO Last administered on 02/17/17 09:05; Start 02/16/17 at 14:30 Metoprolol Tartrate (Lopressor) 50 mg BID PO Last administered on 02/17/17 09: 04; Start 02/16/17 at 14:30 Non-Formulary Medication 1 puff DAILY IH ; Start 02/17/17 at 09:00; Status UNV Non-Formulary Medication 1 puff DAILY IH ; Start 02/17/17 at 09:00; Status UNV Budesonide (Pulmicort) 0.5 mg RTBID NEB Last administered on 02/16/17 19:28; Start 02/16/17 at 20:00; Stop 02/17/17 at 08:55; Status DC Albuterol Sulfate (Ventolin Neb Soln) 2.5 mg RTQID NEB Last administered on 19:25; Start 02/16/17 at 16:00; Stop 02/17/17 at 08:55; Status DC Dexamethasone (Decadron) 4 mg Q6HRS PO ; Start 02/18/17 at 00:00; Stop 02/18/17 at 00:00; Status DC Dexamethasone (Decadron) 4 mg Q6HRS PO Last administered on 02/17/17 06:19; Start 02/17/17 at 00:00 Albuterol Sulfate (Ventolin Neb Soln) 2.5 mg PRN QID PRN NEB SHORTNESS OF BREATH; Start 02/17/17 at 09:00 Gadobutrol (Gadavist) 10 mmol 1X ONCE IV Last administered on 02/17/17 10:00 ; Start 02/17/17 at 10:00; Stop 02/17/17 at 10:01; Status DC Active Scripts Active Reported Breo Ellipta 100-25 Mcg Inh (Fluticasone/Vilanterol) 1 Each Aer.pow.ba 1 Puff IH DAILY Dexamethasone 4 Mg Tablet 4 Mg PO DAILY Metoprolol Tartrate 50 Mg Tablet 50 Mg PO BID Citalopram Hbr (Citalopram Hydrobromide) 20 Mg Tablet 20 Mg PO DAILY Omeprazole 20 Mg Capsule.dr 1 Cap PO DAILY Breo Ellipta 200-25 Mcg INH (Fluticasone/Vilanterol) 1 Each Blst.w.dev 1 Puff IH DAILY Vitals/I & O Vital Sign - Last 24 Hours 02/16/17 02/16/17 02/16/17 02/16/17 13:11 13:26 13:30 13:41 Temp 97.4 97.4 Pulse 78 75 80 Resp 20 20 20 B/P (MAP) 142/78 160/103 131/96 Pulse Ox 96 92 96 O2 Delivery Simple Mask Room Air Mask Room Air O2 Flow Rate 10 5.0 02/16/17 02/16/17 02/16/17 02/16/17 13:56 14:00 15:00 15:34 Temp 97.0 97.0 Pulse 75 73 70 Resp 18 15 19 B/P (MAP) 164/95 160/86 (110) 178/76 (110) Pulse Ox 95 95 94 98 O2 Delivery Room Air Room Air Room Air Room Air 02/16/17 02/16/17 02/16/17 02/16/17 16:00 16:00 16:37 17:00 Temp 97.0 97.0 Pulse 84 75 82 Resp 20 25 B/P (MAP) 138/66 (90) 164/95 176/82 (113) Pulse Ox 94 95 O2 Delivery Mask Room Air Room Air O2 Flow Rate 5.0 02/16/17 02/16/17 02/16/17 02/16/17 17:24 18:00 19:00 19:25 Pulse 64 80 Resp 19 24 B/P (MAP) 167/77 144/68 (93) 110/67 (81) Pulse Ox 94 94 96 O2 Delivery Room Air Room Air Room Air 02/16/17 02/16/17 02/16/17 02/16/17 19:28 19:47 20:00 20:00 Temp 97.0 97.0 Pulse 64 75 B/P (MAP) 175/77 (109) 126/61 (82) Pulse Ox 94 O2 Delivery Room Air Simple Mask Room Air O2 Flow Rate 5.0 02/16/17 02/16/17 02/16/17 02/16/17 20:00 21:00 21:15 22:00 Temp 97.4 97.4 Pulse 75 70 72 66 Resp 29 16 18 B/P (MAP) 126/61 (82) 148/72 (97) 146/71 140/66 (90) Pulse Ox 96 93 94 O2 Delivery Room Air Room Air Room Air 02/16/17 02/16/17 02/16/17 02/17/17 23:00 23:59 23:59 00:00 Temp 97.4 97.4 Pulse 62 57 57 Resp 16 13 B/P (MAP) 142/68 (92) 156/73 (100) 156/73 (100) Pulse Ox 93 97 O2 Delivery Room Air Room Air Room Air 5/02/17/17 02/17/17 02/17/17 01:00 01:33 01:37 02:00 Pulse 56 58 58 Resp 13 20 13 B/P (MAP) 156/75 (102) 151/76 142/67 (92) Pulse Ox 95 95 94 O2 Delivery Room Air Room Air Room Air 02/17/17 02/17/17 02/17/17 02/17/17 02:37 03:00 03:58 03:59 Pulse 57 58 Resp 13 12 B/P (MAP) 103/70 (81) 154/78 (103) Pulse Ox 95 95 O2 Delivery Room Air Room Air Room Air 02/17/17 02/17/17 02/17/17 02/17/17 04:00 05:00 06:00 06:19 Temp 97.5 97.5 Pulse 58 58 57 57 Resp 18 17 27 B/P (MAP) 154/78 (103) 119/81 (94) 128/79 (95) 143/79 Pulse Ox 97 94 95 O2 Delivery Room Air Room Air Room Air 02/17/17 02/17/17 08:00 09:04 B/P (MAP) 137/56 O2 Delivery Room Air Intake and Output 02/16/17 02/16/17 02/17/17 15:00 23:00 07:00 Intake Total 550 ml 900 ml 1740 ml Output Total 760 ml 1825 ml 1850 ml Balance -210 ml -925 ml -110 ml YOLY OCHAO MD February 17, 2017 12:06
--- NOTE | 2017-02-17 15:39 | PDOC ---
Provider Note Provider Note Med Onc consult: 1. Brain tumor s/p resection 02/16/17. Await pathology f/u with me in 2 weeks. see dictation # [id number] JESSI IQBAL MD February 17, 2017 15:39
--- NOTE | 2017-02-17 16:56 | PDOC ---
GENERAL General: vss and afebrile. awake and alert and in ICU. no complaints of pain or nausea. chest clear, heart regular, abdomen benign. Neuro exam non focal. brain tumor resected at surgery yesterday and path pending. continue present care. sugars good. Problems: VITAL SIGNS Vital Signs: Vital Signs Date Time Temp Pulse Resp B/P (MAP) Pulse Ox O2 Delivery O2 Flow Rate FiO2 02/17/17 16:00 97.7 57 18 109/66 (80) 95 Room Air 97.7 02/16/17 19:47 5.0 I & O I & O Intake and Output 02/17/17 07:00 Intake Total 3190 ml Output Total 4435 ml Balance -1245 ml Intake Oral 2740 ml IV Total 450 ml Output Urine Total 4435 ml ALLERGIES Allergies: Allergies Coded Allergies Type Severity Reaction Last Updated Verified No Known Drug Allergies 02/16/17 No MEDS Medications: Current Medications Medications (Trade) Dose Ordered Sig/Pankaj Start Time Stop Time Status Last Admin Dose Admin Al Hydroxide/Mg Hydroxide (Mylanta Plus Xs) 30 ml PRN Q3HRS PRN 02/16/17 13:30 Albuterol Sulfate (Ventolin Neb Soln) 2.5 mg PRN QID PRN 02/17/17 09:00 Bacitracin 14 tiffanie STK-MED ONCE 02/16/17 07:10 02/16/17 07:11 DC Bacitracin 42347 unit/Sodium Chloride 1,000 ml @ 1,000 mls/hr 1X PERIOP ONCE 02/16/17 06:00 02/16/17 06:59 DC 02/16/17 10:03 Budesonide (Pulmicort) 0.5 mg RTBID 02/16/17 20:00 02/17/17 08:55 DC 02/16/17 19:28 0.5 MG Calcium Carbonate/ Glycine (Tums) 500 mg PRN Q3HRS PRN 02/16/17 13:30 Cefazolin Sodium/ Dextrose 50 ml @ 100 mls/hr 1X PRN PRN 02/16/17 08:00 02/17/17 10:37 DC 02/16/17 09:36 100 MLS/HR Cellulose 1 each STK-MED ONCE 02/16/17 10:27 02/16/17 10:28 DC 02/16/17 11:47 1 EACH Citalopram Hydrobromide (CeleXA) 20 mg DAILY 02/16/17 14:30 02/17/17 09:05 20 MG Clonidine HCl (Catapres) 0.1 mg PRN Q1HR PRN 02/16/17 13:30 02/17/17 06:19 0.1 MG Dexamethasone (Decadron) 4 mg Q6HRS 02/17/17 00:00 02/17/17 14:46 4 MG Dexamethasone Sodium Phosphate (Decadron) 4 mg Q6HRS 02/16/17 14:00 02/16/17 17:02 DC 02/16/17 16:36 4 MG Dextrose (Dextrose 50%-Water Syringe) 12.5 gm PRN Q15MIN PRN 02/16/17 13:30 Diphenhydramine HCl (Benadryl) 25 mg PRN Q6HRS PRN 02/16/17 13:30 Docusate Sodium (Colace) 100 mg BID 02/16/17 21:00 02/17/17 09:05 100 MG Ephedrine Sulfate 50 mg STK-MED ONCE 02/16/17 09:57 02/16/17 09:58 DC Famotidine (Pepcid) 20 mg BID 02/16/17 21:00 02/17/17 09:04 20 MG Fentanyl Citrate (Fentanyl 2ml Vial) 50 mcg PRN Q1HR PRN 02/16/17 13:30 02/16/17 16:35 50 MCG Gadobutrol (Gadavist) 10 mmol 1X ONCE 02/17/17 10:00 02/17/17 10:01 DC 02/17/17 10:00 10 MMOL Gelatin (Gelfoam Size 100) 1 each STK-MED ONCE 02/16/17 07:10 02/16/17 07:11 DC 02/16/17 10:03 1 EACH Gelatin (Gelfoam Powder) 1 gm STK-MED ONCE 02/16/17 10:41 02/16/17 10:42 DC 02/16/17 10:43 1 GM Glycopyrrolate (Robinul) 1 mg STK-MED ONCE 02/16/17 12:50 02/16/17 12:51 DC Hydralazine HCl (Apresoline) 5 mg PRN Q6HRS PRN 02/16/17 13:30 02/17/17 01:33 5 MG Hydromorphone HCl (Dilaudid) 0.5 mg PRN Q10MIN PRN 02/16/17 07:00 02/16/17 18:00 DC Insulin Aspart (NovoLOG) 0-7 UNITS TIDWMEALS 02/16/17 17:00 Labetalol HCl (Normodyne) 5 mg PRN Q15MIN PRN 02/16/17 13:30 Lidocaine HCl (Lidocaine Pf 2% Vial) 5 ml STK-MED ONCE 02/16/17 11:20 02/16/17 11:21 DC Lidocaine/ Epinephrine (Xylocaine 1%-Epi 1:100,000) 20 ml STK-MED ONCE 02/16/17 07:10 02/16/17 07:11 DC 02/16/17 10:03 20 ML Lorazepam (Ativan) 1 mg 1X ONCE 02/16/17 14:00 02/16/17 14:01 DC Magnesium Hydroxide (Milk Of Magnesia) 2,400 mg PRN Q12HR PRN 02/16/17 13:30 Mannitol (Mannitol) 12.5 g STK-MED ONCE 02/16/17 08:53 02/16/17 08:54 DC Metoprolol Tartrate (Lopressor) 50 mg BID 02/16/17 14:30 02/17/17 09:04 50 MG Midazolam HCl (Versed) 2 mg STK-MED ONCE 02/16/17 08:19 02/16/17 08:20 DC Morphine Sulfate 1 mg PRN Q10MIN PRN 02/16/17 07:00 02/16/17 18:00 DC Neostigmine Methylsulfate 5 mg STK-MED ONCE 02/16/17 12:50 02/16/17 12:51 DC Nicardipine HCl 50 mg/Sodium Chloride 270 ml @ 27 mls/hr TITRATE PRN 02/16/17 13:30 Non-Formulary Medication 1 puff DAILY 02/17/17 09:00 UNV Ondansetron HCl (Zofran) 4 mg PRN Q6HRS PRN 02/16/17 13:30 Oxycodone/ Acetaminophen (Percocet 5/325) 2 tab PRN Q4HRS PRN 02/16/17 13:30 02/17/17 15:28 2 TAB Prochlorperazine Edisylate (Compazine) 5 mg PACU PRN PRN 02/16/17 07:00 02/16/17 18:00 DC Propofol 20 ml @ As Directed STK-MED ONCE 02/16/17 11:20 02/16/17 11:21 DC Remifentanil HCl (Ultiva) 2 mg STK-MED ONCE 02/16/17 11:38 02/16/17 11:39 DC Ringer's Solution 1,000 ml @ 30 mls/hr Q24H 02/16/17 07:00 02/16/17 18:59 DC 02/16/17 07:27 30 MLS/HR Rocuronium [place] (Zemuron) 50 mg STK-MED ONCE 02/16/17 10:05 02/16/17 10:06 DC Senna/Docusate Sodium (Senna Plus) 1 tab BID 02/16/17 21:00 02/17/17 09:05 1 TAB Sevoflurane (Ultane) 90 ml STK-MED ONCE 02/16/17 11:20 02/16/17 11:21 DC Sodium Chloride (Normal Saline Flush) 3 ml QSHIFT PRN 02/16/17 13:30 Thrombin 20,000 unit STK-MED ONCE 02/16/17 10:41 02/16/17 10:42 DC 02/16/17 10:43 20,000 UNIT LAB Lab: Laboratory Tests Test 02/16/17 17:29 02/17/17 16:30 Glucose (Fingerstick) 120 mg/dL (70-99) 99 mg/dL (70-99) ZAY MILES MD February 17, 2017 16:56
[2017-02-18] MEDS ORDERED: DEXAMETHASONE 4 MG TABLET PO SCH
[2017-02-18] MEDS: DEXAMETHASONE 4 MG TABLET PO SCH ×2 (00:24→05:52)
--- NOTE | 2017-02-18 02:55 | CONS ---
DATE OF CONSULTATION: 02/17/2017 CONSULTATION REQUESTED BY: Dr. Vincent Rawls. REASON FOR CONSULTATION: Brain tumor with preliminary results suggestive of glioma. HISTORY OF PRESENT ILLNESS: The patient is a 77-year-old gentleman who reports having had uncontrolled high blood pressure in 11/2016 and he presented to [facility]. He has symptoms of dizziness and nausea due to hypertension and he underwent a CT scan of the head, which revealed ill-defined density in the right temporal lobe suggesting a mass or subacute hemorrhage and MRI was recommended. He underwent MRI spectroscopy at [facility] on 01/22/2017 and this revealed infiltrative expansile right temporal/insular mass with appearance and spectroscopy pattern suggestive of a primary brain neoplasm/glioma. The patient was evaluated by Dr. Vincent Rawls and he underwent craniotomy and resection of the brain lesion on 02/16/2017. The right temporal mass was resected and the preliminary frozen section results from the pathologist is suggestive of a glioma. Final results are still pending. The patient denies any symptoms from this mass. Denies any headache, no visual changes, no focal deficits. PAST MEDICAL HISTORY: Asthma, GERD, history of colon cancer in 1990 for which he underwent surgery followed by adjuvant chemotherapy by Dr. Owen Pichardo ____. Benign prostatic hypertrophy, osteoarthritis of the right knee, and depression. PAST SURGICAL HISTORY: Partial colectomy and vasectomy. SOCIAL HISTORY: He is . He has a history of smoking for about 20 years and he quit at the age of 36. No alcohol abuse. FAMILY HISTORY: Father had brain cancer, mother had colon cancer. REVIEW OF SYSTEMS: A 12-point review of system was performed. Pertinent positives are mentioned in the history of present illness. Rest of the system review is negative. PHYSICAL EXAMINATION: GENERAL APPEARANCE: The patient is a 77-year-old gentleman who is in no acute cardiorespiratory distress. VITAL SIGNS: Blood pressure 148/85, temperature 97.9. HEAD: He has evidence of dressing in the right side of his head from recent craniotomy. EYES: No icterus. NECK: Supple. CHEST: Bilaterally symmetrical. HEART: S1, S2 normal. ABDOMEN: Soft, distended. No hepatosplenomegaly. CENTRAL NERVOUS SYSTEM: No focal deficits. LYMPHATICS: No lymphadenopathy. SKIN: No rashes. PSYCHOLOGIC: Mood and affect are appropriate. MUSCULOSKELETAL: No joint effusion. LABORATORY DATA: WBC 14.6, hemoglobin 13.6, platelet count 222, sodium 139, potential 4.2, glucose 113, calcium 7.9. Creatinine 1.0, total bilirubin 0.4, AST 23, ALT 51, alkaline phosphatase 44, total protein 5.7. Albumin 2.8. IMPRESSION AND PLAN: 1. Brain tumor. 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 I will await final results to check on the grade of the glioma. If the final pathology reveals the glioblastoma multiforme then he would need adjuvant chemotherapy and radiation therapy. I have advised the patient to follow up with me in about 1-2 weeks to review the results of the pathology. All his questions were answered. 2. Hypertension. Continue management per Dr. Lamberto An. I discussed with the patient's family. I discussed with registered nurse. JESSI IQBAL MD DR: BREANNA/layla JOB#: [id number] / [id number] MURALI
[2017-02-18 03:00] VITALS: BP 163/72
--- NOTE | 2017-02-18 04:12 | CONS ---
DATE OF CONSULTATION: 02/17/2017 REFERRING PHYSICIAN: Dr. Rawls. HISTORY OF PRESENT ILLNESS: The patient is a pleasant 77-year-old gentleman from [place], [place], has a history since 11/2016 of not feeling well who did feel dizzy at times and initially was admitted on 12/07/2016 secondary to just did not feel well and this gentleman has no history of any neurological episodes like strokes or severe head injury. On 12/07/2016, the patient has had CT of the head done without contrast, which showed an ill-defined density in the right temporal lobe suggesting a mass or subacute hemorrhage. MRI was recommended. In 11/2016, secondary to the findings of the CT scan, the patient was put on steroid. The patient also had a CT scan of the chest, abdomen and pelvis on 12/12/2016, which failed to reveal any abnormality. On 01/01/2017, the patient had an MRI of the brain with findings of progression of edema in the right temporal lobe, significant progression of enhancement within the central portion of the area of edema and no midline shift. Ventricles were normal in size. Subsequently, on 02/16/2017, the patient had an MRI of the brain, which revealed a 2.5 cm heterogeneous predominantly peripheral enhancing lesion within the right temporal lobe with extensive edema. The edema had slightly increased as compared to the studies he had before. There were some signal changes throughout the cerebral white matter. The patient has been admitted on this occasion and underwent right craniotomy with resection of the mass. The pathology of which is awaited. PAST MEDICAL HISTORY: The patient is known to have asthma, gastroesophageal reflux disease. Also has a history of colon cancer. Has enlarged benign prostatic hypertrophy, had surgeries in the right knee, and he is depressed. PAST SURGICAL HISTORY: The patient had partial colectomy and vasectomy in the past. PERSONAL HISTORY: The patient has no drug allergies or food allergies. He lives alone in [place], [place]. He is a nonsmoker, joshua not drink alcohol and does not use drugs. FAMILY HISTORY: Totally unremarkable. PHYSICAL EXAMINATION: HEAD AND NECK: Reveals the patient has a quesada face secondary to chronic intake of steroids. He has a right craniotomy scar covered with bandages. He already was sitting in a wheelchair and talking quite coherently. His daughter and one another friend were present. Head examination as stated above. He has never had any headache. He had sort of dizziness, which he is not able to describe. He just felt week. No change in the vision. No change in hearing. No difficulty in swallowing and oral cavity, oropharynx was unremarkable. NECK: No adenopathy in the bilateral neck. LUNGS: The patient is a nonsmoker, has no cough, shortness of breath and on auscultation, the bilateral lungs were unremarkable. CARDIOVASCULAR: The heart with regular rate and rhythm. No murmurs were heard. ABDOMEN: Soft, benign, nontender, without hepatosplenomegaly, masses or tenderness. EXTREMITIES: Revealed some pitting edema of the lower extremities. No cyanosis. NEUROLOGIC: The patient has no deficits. The patient has undergone right craniotomy and resection of the mass and final pathology is awaited. Further treatment on this patient will depend on the final pathology and the patient and the family were explained depending on the final pathology. We will follow the case with you and wait for the final pathology. YOLY OCHOA MD DR: AYDEN/layla JOB#: [id number] / [id number] MURALI
[2017-02-18] MEDS: INSULIN ASPART 300 UNITS/3 ML INSULN.PEN SQ SCH (07:55)
[2017-02-18 08:00] VITALS: BP 178/100
[2017-02-18 08:49] VITALS: BP 178/100
[2017-02-18] MEDS: DOCUSATE SODIUM 100 MG CAPSULE. PO SCH (08:49)
[2017-02-18] MEDS: FAMOTIDINE 20 MG TABLET. PO SCH (08:49)
[2017-02-18] MEDS: METOPROLOL TART IMMED RELEASE 50 MG TABLET. PO SCH (08:49)
[2017-02-18] MEDS: SENNOSIDES/DOCUSATE 8.6/50MG TABLET. PO SCH (08:49)
[2017-02-18] MEDS: CITALOPRAM 20 MG TABLET. PO SCH (08:49)
[2017-02-18] MEDS ORDERED: BREO ELIPTA INH SCH (09:00)
--- NOTE | 2017-02-18 09:15 | PDOC ---
SUBJECTIVE Subjective Denies acute complaints. Wishes to go home if possible. OBJECTIVE Vital Signs Vital Signs Date Time Temp Pulse Resp B/P (MAP) Pulse Ox O2 Delivery O2 Flow Rate FiO2 02/18/17 08:49 66 178/100 02/18/17 08:00 97.4 66 20 178/100 (126) 95 Room Air 97.4 02/18/17 04:00 Room Air 02/18/17 03:00 97.5 59 18 163/72 (102) 96 Room Air 97.5 02/18/17 00:03 Room Air 02/17/17 23:10 98.2 56 16 111/75 (87) 93 Room Air 98.2 02/17/17 22:11 Room Air 02/17/17 21:00 67 105/60 02/17/17 20:00 Room Air 02/17/17 19:00 98.2 67 18 105/60 (75) 96 Room Air 98.2 02/17/17 16:00 97.7 57 18 109/66 (80) 95 Room Air 97.7 02/17/17 12:00 97.9 52 20 148/85 (106) 96 Room Air 97.9 02/17/17 11:00 58 22 135/77 (96) 97 Room Air I & O Intake and Output 02/18/17 06:59 Intake Total 1160 ml Output Total 2200 ml Balance -1040 ml Intake Oral 1160 ml Output Urine Total 2200 ml # Voids 1 PHYSICAL EXAM Physical Exam AAOx4, bright, pleasant, NAD, CN intact, RESENDIZ 5/5, sensation intact LT, incision c/d/i, flat, with chela ASSESSMENT/PLAN Assessment/Plan POD 2 craniotomy for brain tumor -clinically and neurologically doing well -appreciate consultants -final path still pending -d/c home with steroid taper -f/u with NS, onc, rad onc, pcp Problems: COMMENT Lab Laboratory Tests Test 02/17/17 16:30 02/17/17 20:46 02/18/17 07:32 Glucose (Fingerstick) 99 mg/dL (70-99) 147 mg/dL (70-99) 119 mg/dL (70-99) IRENE GONCALVES MD Feb 18, 2017 09:15
--- NOTE | 2017-02-18 10:19 | PDOC ---
PROGRESS NOTES Subjective Subjective c/c - f/u of Brain tumor Objective Objective Vital Signs Date Time Temp Pulse Resp B/P (MAP) Pulse Ox O2 Delivery O2 Flow Rate FiO2 02/18/17 08:49 66 178/100 02/18/17 08:00 97.4 20 95 Room Air 97.4 02/16/17 19:47 5.0 Intake and Output 02/18/17 07:00 Intake Total 1160 ml Output Total 2200 ml Balance -1040 ml Intake Oral 1160 ml Output Urine Total 2200 ml # Voids 1 Physical Exam Heart: Normal S1, Normal S2 General: Alert, Oriented X3 Lungs: Clear to auscultation Neuro: Normal speech Psych/Mental Status: Mental status NL Assessment Assessment IMPRESSION AND PLAN: 1. Brain tumor. 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 I will await final results to check on the grade of the glioma. If the final pathology reveals the glioblastoma multiforme then he would need adjuvant chemotherapy and radiation therapy. I have advised the patient to follow up with me in about 1-2 weeks to review the results of the pathology. All his questions were answered. I d/w DR Potter, path results still pending. 2. Hypertension. Continue management per Dr. Orantes Appl. Agree with d/c plans. I discussed with registered nurse. Comment Review of Relevant I have reviewed the following items abran (where applicable) has been applied. Labs Laboratory Tests Test 02/16/17 14:08 02/16/17 17:29 02/17/17 16:30 02/17/17 20:46 Sodium Level 139 mmol/L (136-145) Potassium Level 4.2 mmol/L (3.5-5.1) Chloride Level 105 mmol/L (98-107) Carbon Dioxide Level 27 mmol/L (21-32) Anion Gap 7 (6-14) Blood Urea Nitrogen 23 mg/dL (8-26) Creatinine 1.0 mg/dL (0.7-1.3) Estimated GFR (Cockcroft-Gault) 72.6 BUN/Creatinine Ratio 23 (6-20) Glucose Level 113 mg/dL (70-99) Calcium Level 7.9 mg/dL (8.5-10.1) Phosphorus Level 4.3 mg/dL (2.6-4.7) Magnesium Level 2.0 mg/dL (1.8-2.4) Total Bilirubin 0.4 mg/dL (0.2-1.0) Aspartate Amino Transf (AST/SGOT) 23 U/L (15-37) Alanine Aminotransferase (ALT/SGPT) 51 U/L (16-63) Alkaline Phosphatase 44 U/L (46-116) Total Protein 5.7 g/dL (6.4-8.2) Albumin 2.8 g/dL (3.4-5.0) Albumin/Globulin Ratio 1.0 (1.0-1.7) Glucose (Fingerstick) 120 mg/dL (70-99) 99 mg/dL (70-99) 147 mg/dL (70-99) Test 02/18/17 07:32 Glucose (Fingerstick) 119 mg/dL (70-99) Laboratory Tests Test 02/17/17 16:30 02/17/17 20:46 02/18/17 07:32 Glucose (Fingerstick) 99 mg/dL (70-99) 147 mg/dL (70-99) 119 mg/dL (70-99) Medications Current Medications Bacitracin 35216 unit/Sodium Chloride 1,000 ml @ 1,000 mls/hr 1X PERIOP ONCE IRR Last administered on 02/16/17 10:03; Start 02/16/17 at 06:00; Stop at 06:59; Status DC Fentanyl Citrate (Fentanyl 2ml Vial) 25 mcg PRN Q5MIN PRN IV MILD PAIN; Start 02/16/17 at 07:00; Stop 02/16/17 at 18:00; Status DC Fentanyl Citrate (Fentanyl 2ml Vial) 50 mcg PRN Q5MIN PRN IV MODERATE PAIN; Start 02/16/17 at 07:00; Stop 02/16/17 at 18:00; Status DC Morphine Sulfate 1 mg PRN Q10MIN PRN IV SEVERE PAIN; Start 02/16/17 at 07:00; Stop 02/16/17 at 18:00; Status DC Ringer's Solution 1,000 ml @ 30 mls/hr Q24H IV Last administered on 02/16/17 07:27; Start 02/16/17 at 07:00; Stop 02/16/17 at 18:59; Status DC Lidocaine HCl 2 ml PRN 1X PRN ID PRIOR TO IV START; Start 02/16/17 at 07:00; Stop 02/16/17 at 18:00; Status DC Hydromorphone HCl (Dilaudid) 0.5 mg PRN Q10MIN PRN IV SEV PAIN, Second choice; Start 02/16/17 at 07:00; Stop 02/16/17 at 18:00; Status DC Prochlorperazine Edisylate (Compazine) 5 mg PACU PRN PRN IV NAUSEA, MRX1; Start 02/16/17 at 07:00; Stop 02/16/17 at 18:00; Status DC Cefazolin Sodium/ Dextrose 50 ml @ 100 mls/hr 1X PRN PRN IV PRIOR TO SURGERY Last administered on 02/16/17 09:36; Start 02/16/17 at 08:00; Stop 02/17/17 at 10:37; Status DC Lidocaine/ Epinephrine (Xylocaine 1%-Epi 1:100,000) 20 ml STK-MED ONCE .ROUTE Last administered on 02/16/17 10:03; Start 02/16/17 at 07:10; Stop 02/16/17 at 07:11; Status DC Bacitracin 14 tiffanie STK-MED ONCE TP ; Start 02/16/17 at 07:10; Stop 02/16/17 at 07 :11; Status DC Gelatin (Gelfoam Powder) 1 gm STK-MED ONCE .ROUTE Last administered on 10:03; Start 02/16/17 at 07:10; Stop 02/16/17 at 07:11; Status DC Gelatin (Gelfoam Size 100) 1 each STK-MED ONCE .ROUTE Last administered on 10:03; Start 02/16/17 at 07:10; Stop 02/16/17 at 07:11; Status DC Thrombin 20,000 unit STK-MED ONCE TP Last administered on 02/16/17 10:03; Start 02/16/17 at 07:10; Stop 02/16/17 at 07:11; Status DC Gadobutrol (Gadavist) 10 mmol 1X ONCE IV Last administered on 02/16/17 07:30 ; Start 02/16/17 at 07:30; Stop 02/16/17 at 07:31; Status DC Midazolam HCl (Versed) 2 mg STK-MED ONCE .ROUTE ; Start 02/16/17 at 08:19; Stop 02/16/17 at 08:20; Status DC Remifentanil HCl (Ultiva) 2 mg STK-MED ONCE IV ; Start 02/16/17 at 08:19; Stop 02/16/17 at 08:20; Status DC Fentanyl Citrate (Fentanyl 2ml Vial) 100 mcg STK-MED ONCE .ROUTE ; Start at 08:20; Stop 02/16/17 at 08:21; Status DC Rocuronium Mcguffey (Zemuron) 50 mg STK-MED ONCE .ROUTE ; Start 02/16/17 at 08:20 ; Stop 02/16/17 at 08:21; Status DC Mannitol (Mannitol) 12.5 g STK-MED ONCE .ROUTE ; Start 02/16/17 at 08:53; Stop 02/16/17 at 08:54; Status DC Ephedrine Sulfate 50 mg STK-MED ONCE IV ; Start 02/16/17 at 09:57; Stop at 09:58; Status DC Rocuronium Mcguffey (Zemuron) 50 mg STK-MED ONCE .ROUTE ; Start 02/16/17 at 10:05 ; Stop 02/16/17 at 10:06; Status DC Cellulose 1 each STK-MED ONCE .ROUTE Last administered on 02/16/17 11:47; Start 02/16/17 at 10:27; Stop 02/16/17 at 10:28; Status DC Gelatin (Gelfoam Powder) 1 gm STK-MED ONCE .ROUTE Last administered on 10:43; Start 02/16/17 at 10:41; Stop 02/16/17 at 10:42; Status DC Thrombin 20,000 unit STK-MED ONCE TP Last administered on 02/16/17 10:43; Start 02/16/17 at 10:41; Stop 02/16/17 at 10:42; Status DC Propofol 50 ml @ As Directed STK-MED ONCE IV ; Start 02/16/17 at 11:20; Stop at 11:21; Status DC Propofol 50 ml @ As Directed STK-MED ONCE IV ; Start 02/16/17 at 11:20; Stop at 11:21; Status DC Dexamethasone Sodium Phosphate (Decadron) 20 mg STK-MED ONCE .ROUTE ; Start at 11:20; Stop 02/16/17 at 11:21; Status DC Propofol 20 ml @ As Directed STK-MED ONCE IV ; Start 02/16/17 at 11:20; Stop at 11:21; Status DC Lidocaine HCl (Lidocaine Pf 2% Vial) 5 ml STK-MED ONCE .ROUTE ; Start 02/16/17 at 11:20; Stop 02/16/17 at 11:21; Status DC Ondansetron HCl (Zofran) 4 mg STK-MED ONCE .ROUTE ; Start 02/16/17 at 11:20; Stop 02/16/17 at 11:21; Status DC Sevoflurane (Ultane) 90 ml STK-MED ONCE IH ; Start 02/16/17 at 11:20; Stop 02/16 at 11:21; Status DC Remifentanil HCl (Ultiva) 2 mg STK-MED ONCE IV ; Start 02/16/17 at 11:38; Stop 02/16/17 at 11:39; Status DC Glycopyrrolate (Robinul) 1 mg STK-MED ONCE .ROUTE ; Start 02/16/17 at 12:50; Stop 02/16/17 at 12:51; Status DC Neostigmine Methylsulfate 5 mg STK-MED ONCE .ROUTE ; Start 02/16/17 at 12:50; Stop 02/16/17 at 12:51; Status DC Fentanyl Citrate (Fentanyl 2ml Vial) 50 mcg 1X ONCE IM ; Start 02/16/17 at 14: 00; Stop 02/16/17 at 14:01; Status DC Lorazepam (Ativan) 1 mg 1X ONCE IV ; Start 02/16/17 at 14:00; Stop 02/16/17 at 14:01; Status DC Labetalol HCl (Normodyne) 5 mg PRN Q15MIN PRN IV HYPERTENSION, SEE COMMENTS; Start 02/16/17 at 13:30 Nicardipine HCl 50 mg/Sodium Chloride 270 ml @ 27 mls/hr TITRATE PRN IV PER PROTOCOL; Start 02/16/17 at 13:30 Hydralazine HCl (Apresoline) 5 mg PRN Q6HRS PRN IVP TO KEEP SBP<140mmHg Last administered on 02/17/17 01:33; Start 02/16/17 at 13:30 Clonidine HCl (Catapres) 0.1 mg PRN Q1HR PRN PO HYPERTENSION, SEE COMMENTS Last administered on 02/17/17 06:19; Start 02/16/17 at 13:30 Al Hydroxide/Mg Hydroxide (Mylanta Plus Xs) 30 ml PRN Q3HRS PRN PO HEARTBURN / GAS; Start 02/16/17 at 13:30 Calcium Carbonate/ Glycine (Tums) 500 mg PRN Q3HRS PRN PO INDIGESTION; Start at 13:30 Diphenhydramine HCl (Benadryl) 25 mg PRN Q6HRS PRN PO ITCHING; Start 02/16/17 at 13:30 Diphenhydramine HCl (Benadryl) 25 mg PRN Q6HRS PRN IV ITCHING; Start 02/16/17 at 13:30 Famotidine (Pepcid) 20 mg BID PO Last administered on 02/18/17 08:49; Start at 21:00 Sodium Chloride (Normal Saline Flush) 3 ml QSHIFT PRN IV AFTER MEDS AND BLOOD DRAWS; Start 02/16/17 at 13:30 Insulin Aspart (NovoLOG) 0-7 UNITS TIDWMEALS SQ ; Start 02/16/17 at 17:00 Dextrose (Dextrose 50%-Water Syringe) 12.5 gm PRN Q15MIN PRN IV SEE COMMENTS; Start 02/16/17 at 13:30 Oxycodone/ Acetaminophen (Percocet 5/325) 1 tab PRN Q4HRS PRN PO MILD PAIN, 1ST CHOICE; Start 02/16/17 at 13:30 Oxycodone/ Acetaminophen (Percocet 5/325) 2 tab PRN Q4HRS PRN PO MODERATE PAIN , SEVERE PAIN Last administered on 02/17/17 15:28; Start 02/16/17 at 13:30 Senna/Docusate Sodium (Senna Plus) 1 tab BID PO Last administered on 02/18/17 08:49; Start 02/16/17 at 21:00 Docusate Sodium (Colace) 100 mg BID PO Last administered on 02/18/17 08:49; Start 02/16/17 at 21:00 Magnesium Hydroxide (Milk Of Magnesia) 2,400 mg PRN Q12HR PRN PO CONSTIPATION; Start 02/16/17 at 13:30 Ondansetron HCl (Zofran) 4 mg PRN Q6HRS PRN IV NAUESA, 1ST CHOICE; Start at 13:30 Dexamethasone Sodium Phosphate (Decadron) 4 mg Q6HRS IV Last administered on 16:36; Start 02/16/17 at 14:00; Stop 02/16/17 at 17:02; Status DC Fentanyl Citrate (Fentanyl 2ml Vial) 50 mcg PRN Q1HR PRN IV SEVERE PAIN Last administered on 02/16/17 16:35; Start 02/16/17 at 13:30 Citalopram Hydrobromide (CeleXA) 20 mg DAILY PO Last administered on 02/18/17 08:49; Start 02/16/17 at 14:30 Metoprolol Tartrate (Lopressor) 50 mg BID PO Last administered on 02/18/17 08: 49; Start 02/16/17 at 14:30 Non-Formulary Medication 1 puff DAILY IH ; Start 02/17/17 at 09:00; Status UNV Non-Formulary Medication 1 puff DAILY IH ; Start 02/17/17 at 09:00; Status UNV Budesonide (Pulmicort) 0.5 mg RTBID NEB Last administered on 02/16/17 19:28; Start 02/16/17 at 20:00; Stop 02/17/17 at 08:55; Status DC Albuterol Sulfate (Ventolin Neb Soln) 2.5 mg RTQID NEB Last administered on 19:25; Start 02/16/17 at 16:00; Stop 02/17/17 at 08:55; Status DC Dexamethasone (Decadron) 4 mg Q6HRS PO ; Start 02/18/17 at 00:00; Stop 02/18/17 at 00:00; Status DC Dexamethasone (Decadron) 4 mg Q6HRS PO Last administered on 02/18/17 05:52; Start 02/17/17 at 00:00 Albuterol Sulfate (Ventolin Neb Soln) 2.5 mg PRN QID PRN NEB SHORTNESS OF BREATH; Start 02/17/17 at 09:00 Gadobutrol (Gadavist) 10 mmol 1X ONCE IV Last administered on 02/17/17 10:00 ; Start 02/17/17 at 10:00; Stop 02/17/17 at 10:01; Status DC Non-Formulary Medication 1 ea DAILY INH Last administered on 02/18/17 08:51; Start 02/18/17 at 09:00 Active Scripts Active Reported Breo Ellipta 100-25 Mcg Inh (Fluticasone/Vilanterol) 1 Each Aer.pow.ba 1 Puff IH DAILY Dexamethasone 4 Mg Tablet 4 Mg PO DAILY Metoprolol Tartrate 50 Mg Tablet 50 Mg PO BID Citalopram Hbr (Citalopram Hydrobromide) 20 Mg Tablet 20 Mg PO DAILY Omeprazole 20 Mg Capsule.dr 1 Cap PO DAILY Breo Ellipta 200-25 Mcg INH (Fluticasone/Vilanterol) 1 Each Blst.w.dev 1 Puff IH DAILY Vitals/I & O Vital Sign - Last 24 Hours 02/17/17 02/17/17 02/17/17 02/17/17 11:00 12:00 16:00 19:00 Temp 97.9 97.7 98.2 97.9 97.7 98.2 Pulse 58 52 57 67 Resp 22 20 18 18 B/P (MAP) 135/77 (96) 148/85 (106) 109/66 (80) 105/60 (75) Pulse Ox 97 96 95 96 O2 Delivery Room Air Room Air Room Air Room Air 02/17/17 02/17/17 02/17/17 02/17/17 20:00 21:00 22:11 23:10 Temp 98.2 98.2 Pulse 67 56 Resp 16 B/P (MAP) 105/60 111/75 (87) Pulse Ox 93 O2 Delivery Room Air Room Air Room Air 02/18/17 02/18/17 02/18/17 02/18/17 00:03 03:00 04:00 08:00 Temp 97.5 97.4 97.5 97.4 Pulse 59 66 Resp 18 20 B/P (MAP) 163/72 (102) 178/100 (126) Pulse Ox 96 95 O2 Delivery Room Air Room Air Room Air Room Air 02/18/17 08:49 Pulse 66 B/P (MAP) 178/100 Intake and Output 02/17/17 02/17/17 02/18/17 15:00 23:00 07:00 Intake Total 480 ml 200 ml 480 ml Output Total 1900 ml 300 ml Balance -1420 ml 200 ml 180 ml JESSI IQBAL MD Feb 18, 2017 10:19
--- NOTE | 2017-02-18 15:04 | OP ---
DATE OF SURGERY: 02/16/2017 SURGEON: Vincent Goncalves M.D. SUPERVISOR DOCK: None. PREOPERATIVE DIAGNOSIS: Right temporal brain mass. POSTOPERATIVE DIAGNOSES: Right temporal brain mass, presumptive glioma. ANESTHESIA: General. PROCEDURE: Stereotactic right frontotemporal craniotomy for resection of right temporal brain mass. COMPLICATIONS: None intra-procedurally. INDICATIONS FOR THE PROCEDURE: The patient is a 77-year-old gentleman who presented initially for workup of dizziness and some mild confusion. Imaging revealed a right temporal lesion. This was further evaluated with MR spectroscopy, showing characteristics of neoplastic disease, and it was felt that surgery for definitive diagnosis and resection of this lesion is indicated. Please refer to the patient's chart for additional detail. DESCRIPTION OF PROCEDURE: After informed consent was obtained, the patient was brought into the operating room. He was placed under general anesthesia. He was placed in supine position with a shoulder bump under the right shoulder. A Walton band head saw operator was placed to a pressure of 70 pounds and his head was turned slightly to the left to expose the right frontotemporal region. He had received a stereotactic MR imaging prior to surgery. This was registered with good localization. A curvilinear incision was planned over the inferior frontotemporal region extending cephalad from the zygoma, posteriorly over the auricle and superiorly and then anteriorly just above the region of the sylvian fissure. The region was prepped and draped in the usual sterile fashion. This incision was made with a 10-blade scalpel. Monopolar electrocautery was utilized to dissect the underlying soft tissues and Liyah clips were applied. The underlying temporalis fascia was sharply divided in the plane of the incision and the temporalis muscle was divided and reflected forward with the scalp flap. The underlying bone was stereotactically localized relative to the neoplastic disease on imaging. Four true holes around the periphery of the exposed bone were made with a outreach associate. The underlying dura was then dissected free from the overlying bone with a 3 [place] as well as a [place]. The margins of the bone flap were divided with a craniotome and the bone flap was set aside in bacitracin for later reimplantation. The underlying dura was incised in a curvilinear fashion such that it would be reflected anteriorly. Once the brain surface was exposed, stereotactic localization of abnormal tissue was localized relative to the surface. Corticectomy was performed along the anterior, inferior temporal lobe to approach the enhancing portion of mass. Microdissection techniques were utilized to approach the enhancing portion of the mass lesion and abnormal tissue was readily identified within this area. Several sections of this were taken with a pituitary rongeur and sent for frozen section. The primary diagnosis was consistent with a glioma. Additional sections were taken for permanent pathology section. An ultrasonic aspirator was utilized then to perform anterior, inferior temporal removal near the region of the enhancing tissue. Some of this tissue appeared abnormal as well. Stereotaxis was utilized to verify appropriate margins around to ensure complete removal of the enhancing portion of tissue and the adjacent abnormal appearing tissue as well. Once this was complete, pristine hemostasis was achieved with Gelfoam thrombin, gentle isotonic irrigation, bipolar electrocautery and Surgicel. Once hemostasis was achieved, the dura was then reapproximated with 4-0 Nurolon in a simple interrupted fashion and onlay duraplasty of Duragen with DuraSeal was instituted. The bone was then reapproximated with titanium plates and 4 mm screws with good anatomical contour. Additional DuraSeal was instituted along the margins of the reapproximated bone flap. The wound was then generously irrigated with antibiotic irrigation. The temporalis fascia was then reapproximated with Vicryl suture in a simple interrupted fashion. The galea and subcutaneous tissues were reapproximated with 2-0 Vicryl in an interrupted inverted fashion and the skin was reapproximated with chela. The wound was dressed with Xeroform, Telfa and Tegaderm. The drapes were taken down and Walton band head saw operator removed. The posterior pin site had some hemorrhage, for which pressure was applied, but there was still some degree of hemorrhage, so chela were applied at the posterior pin site. A head wrap with Kerlix was instituted. The patient was subsequently extubated in the operating room and taken into the ICU in stable condition. There were no intra-procedural complications apparent. All needle and sponge counts were correct x 2 at the end of the procedure. VINCENT GONCALVES MD DR: MARY/layla JOB#: [id number] / [id number] MURALI
--- NOTE | 2017-02-19 13:31 | PATHOLOGY ---
PATHOLOGY REPORT * * * * * * * * FINAL DIAGNOSIS: A. 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 B. 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 COMMENT: Sections of the right temporal brain mass biopsy and resection reveal segments of cortical and white matter containing a malignant neoplasm. The neoplasm appears to primarily involve white matter and has a variable cellularity. There are highly cellular areas of the neoplasm composed of malignant cells having scanty cytoplasm and enlarged, irregular angulated hyperchromatic nuclei. Mitotic figures are present. There appear to be a few small foci of tumor necrosis and vascular proliferation. These highly cellular areas transition into areas of lesser cellularity which reveal similar appearing malignant cells, some of which have gemistocytic features. Areas of the cortex appear to show satellitosis. 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 The case is also examined by Dr. Brandon Michel, who concurs with the diagnosis. Special Stains Performed: Immunoperoxidase stains for Vimentin, GFAP, CD45, CD20, and Ki-67 REPORT ELECTRONICALLY SIGNED BY: Jaswant Potter M.D. DATE/TIME: 02/19/2017 13:31 * * * * * * * * GROSS PATHOLOGY: A. The specimen is received fresh for intraoperative consultation and is designated "right temporal brain mass". The specimen consists of four segments of perry and reddish brown soft tissue ranging from 0.4 cm up to 0.9 cm in greatest dimension. These are submitted for frozen section as FSA1. The tissue remaining from frozen section is submitted for permanent sections as A1. (JPM:csd; d/t: 02/16/2017) B. The specimen is received in formalin, designated "right temporal brain mass". This consists of multiple, soft, irregular segments of perry to strickland white tissue, ranging from 0.3 up to 0.9 cm in greatest dimensions and 2.3 x 2.3 x 0.4 cm in aggregate dimensions. The largest segment is bisected and the specimen is submitted entirely in cassettes B1 and B2. (JPM; 02/16/17) FROZEN SECTION DIAGNOSIS: Intraoperative consultation with Frozen Section Jaswant Potter M.D. Right temporal brain mass biopsy: - Glioma, possibly grade III. The results are reported to Dr. Rwals in the operating room. (JPM:csd; d/t: 02/16/2017) Testing performed [place] [address] INITIAL CPT CODE(S): A; 50144, 55685 B; 05405, 44748, 84706, 31982, 25178, 34590 Professional services [place] [address] Technical services performed by [facility] at [address] [place] [address], [facility] [address] [address]. SPECIMEN(S) RECEIVED: A.Right temporal brain mass B.Right temporal brain mass CLINICAL HISTORY: Right brain mass PATIENT: EVELYN KONG /AGE: 5 1940 (Age: 77) PATIENT #: [id number] ALT CASE #: SPECIMEN COLLECTION DATE: 02/16/2017 SPECIMEN RECEIVED DATE: 02/16/2017 [facility] - [id number] [place] [address] - PHONE: [phone] * * * END OF REPORT * * *
== END 2017-02-18 11:30 | disposition home or self-care (01) | DRG 25 ==
LOC: OPSVCIP 02-16 06:13 → 1 WEST ICU 02-16 13:33 → 4 NORTH 02-17 17:20
PROVIDERS: ADMIT Neurological Surgery; ATTEND Neurological Surgery
PROC: 00B00ZZ Excision of Brain, Open Approach (ICD-10-PCS; principal; 2017-02-16 08:30)
DX: C71.9 Malignant neoplasm of brain, unspecified (principal); G93.6 Cerebral edema; E44.1 Mild protein-calorie malnutrition; I10 Essential (primary) hypertension; J45.909 Unspecified asthma, uncomplicated; K21.9 Gastro-esophageal reflux disease without esophagitis; M17.11 Unilateral primary osteoarthritis, right knee; F32.9 Major depressive disorder, single episode, unspecified; N40.0 Benign prostatic hyperplasia without lower urinary tract symptoms; Z80.0 Family history of malignant neoplasm of digestive organs; Z80.8 Family history of malignant neoplasm of other organs or systems; Z85.038 Personal history of other malignant neoplasm of large intestine; Z87.891 Personal history of nicotine dependence
CPT/HCPCS: 36415; 70552; 70553; 80053; 82962; 83735; 84100; 88307; 88331; 88341; 88342; 94250; 94640; A9585; C1713; J0360; J0690; J1100; J1815; J2150; J2250; J2405; J2704; J2710; J3010; J3490; J7030; J7120; J8540

== ENCOUNTER 2017-12-01 14:52 | Emergency (ER) | payer MEDICARE | END 2017-12-01 16:30 | disposition home or self-care (01) | LOC: ER 16:30 | DX: S09.90XA Unspecified injury of head, initial encounter (principal); D49.6 Neoplasm of unspecified behavior of brain; F41.9 Anxiety disorder, unspecified; J45.909 Unspecified asthma, uncomplicated; F32.9 Major depressive disorder, single episode, unspecified; K21.9 Gastro-esophageal reflux disease without esophagitis; Z90.49 Acquired absence of other specified parts of digestive tract; Z98.52 Vasectomy status; W01.198A Fall on same level from slipping, tripping and stumbling with subsequent striking against other object, initial encounter; Y93.89 Activity, other specified; Y92.89 Other specified places as the place of occurrence of the external cause; Y99.8 Other external cause status | CPT/HCPCS: 70450; 72125; 99284-25 ==

== ENCOUNTER → 2017-12-07 | Outpatient (CLI) | payer MEDICARE ==
[2017-12-07 10:41] LABS: GFR 22.1
[2017-12-07 10:41] LABS: CREATININE 2.8 mg/dL (0.7-1.3)
== END | disposition home or self-care (01) ==
LOC: MRI 09:57
DX: C71.9 Malignant neoplasm of brain, unspecified (principal)
CPT/HCPCS: 36415; 82565